=== PATIENT | female | born 1960 | race Caucasian/White ===

== ENCOUNTER 2016-11-29 06:07 | Inpatient (IN) | payer BC ==
[2016-11-14 09:45] VITALS: BMI 40.0
--- NOTE | 2016-11-14 10:11 | PAT Medication Instructions ---
Service Date Nov 14, 2016. Current Home Medication List Atorvastatin (Lipitor), 40 MG PO HS Cetirizine (Zyrtec), 10 MG PO HS Coconut Oil (Coconut Oil Organic), 2 CAP PO BID Fiber (Fiber Formula), 2 CAP PO TID Gabapentin (Neurontin), 600 MG PO TID Levothyroxine Sodium (Synthroid), 112 MCG PO QAM Lidocaine (Lidocaine), 1 PATCH TOP UD PRN for Pain Lorazepam (Lorazepam), 0.5 MG PO TID PRN for Anxiety Magnesium Oxide (Mg Supplement (Magnesium), 500 MG PO TID Multiple Vitamins W/ Minerals (Emergen-C [place]), 1,000 MG PO HS Nutritional Supplements (Menopause Formula), 1 TAB PO QAM Probiotic Product (Probiotic), 1 CAP PO HS Ranitidine HCl (Ranitidine [address]), 150 MG PO HS Sennosides-Docusate Sodium (Stool Softener), 1 TAB PO HS Sumatriptan Succinate (Sumatriptan Succinate), 1 TAB PO UD PRN for Migraine Venlafaxine Hcl (Effexor Xr), 1 CAP PO HS [Hemp Oil], 1,000 MG PO TID Medication Instructions For Your Scheduled Surgery - Hold the following medications 2 weeks prior to surgery: Coconut Oil (Coconut Oil Organic), 2 CAP PO BID [Hemp Oil], 1,000 MG PO TID Nutritional Supplements (Menopause Formula), 1 TAB PO QAM - Avoid using on surgical site 24 hours prior to surgery: Lidocaine (Lidocaine), 1 PATCH TOP UD PRN for Pain - Hold the following medications the morning of surgery: Fiber (Fiber Formula), 2 CAP PO TID Magnesium Oxide (Mg Supplement (Magnesium), 500 MG PO TID - Take the following medications the morning of surgery with a sip of water OTHERWISE NOTHING TO EAT OR DRINK AFTER MIDNIGHT: Sumatriptan Succinate (Sumatriptan Succinate), 1 TAB PO UD PRN for Migraine Gabapentin (Neurontin), 600 MG PO TID Levothyroxine Sodium (Synthroid), 112 MCG PO QAM Lorazepam (Lorazepam), 0.5 MG PO TID PRN for Anxiety - Take the following medications as scheduled the night before surgery: Venlafaxine Hcl (Effexor Xr), 1 CAP PO HS Probiotic Product (Probiotic), 1 CAP PO HS Ranitidine HCl (Ranitidine [address]), 150 MG PO HS Sennosides-Docusate Sodium (Stool Softener), 1 TAB PO HS Atorvastatin (Lipitor), 40 MG PO HS Cetirizine (Zyrtec), 10 MG PO HS Sumatriptan Succinate (Sumatriptan Succinate), 1 TAB PO UD PRN for Migraine Gabapentin (Neurontin), 600 MG PO TID Lorazepam (Lorazepam), 0.5 MG PO TID PRN for Anxiety Fiber (Fiber Formula), 2 CAP PO TID Magnesium Oxide (Mg Supplement (Magnesium), 500 MG PO TID Multiple Vitamins W/ Minerals (Emergen-C [place]), 1,000 MG PO HS If you have any questions please call us at [phone] or [phone] or [phone]
[2016-11-14 11:03] LABS: BASO % 1.8 %; COMPLETE YES; EOS % 3.3 %; HEMATOCRIT 44.5 % (37-47); IG% 0.2 %; LYMPH % 34.6 %; LYMPH ABS # 1.97 K/uL (1.2-3.4); MEAN CELL VOLUME 91.4 fL (80-100); MEAN CORPUSCULAR HEMOGLOBIN 30.2 pg (25-34); MEAN PLATELET VOLUME 8.9 fL (7.4-10.4); MONO % 5.3 %; NEUT % 54.8 %; PLATELET COUNT 294 K/uL (130-400); RED BLOOD COUNT 4.87 M/uL (4.2-5.4)
[2016-11-14 11:07] LABS: URINE APPEARANCE CLEAR (CLEAR); URINE BILIRUBIN NEG (NEG); URINE COLOR DK YELLOW; URINE EPITHELIAL CELL AUTO 20-30 /lpf (0-5); URINE NITRITE NEG (NEG); URINE SPECIFIC GRAVITY 1.017 (1.000-1.030); UROBILINOGEN NEG (NEG)
[2016-11-14 11:12] LABS: MANUAL MICROSCOPIC REQUIRED? NO; REVIEW REQ? NO
--- NOTE | 2016-11-14 11:12 | DIAGNOSTIC IMAGING REPORT ---
TWO VIEW CHEST CLINICAL HISTORY: Preoperative examination. FINDINGS: PA and lateral chest radiographs are compared to study dated 06/01/2015. The cardiomediastinal silhouette is unremarkable. Scattered tiny calcified granulomas are observed. The lungs and pleural spaces are otherwise clear. There is no pneumothorax. The skeletal structures are osteopenic. The bony thorax appears intact. Postoperative changes noted in the lower cervical spine. Fusion hardware is partially imaged in the upper lumbar spine. IMPRESSION: No active disease in the chest. Electronically signed by: Gael Arteaga M.D. 11/14/2016 11:10 AM Dictated Date/Time: 11/14/2016 11:09 AM
[2016-11-14 11:16] LABS: BUN/CREATININE RATIO 12.7 (10-20); CALCIUM 9.6 mg/dl (8.5-10.1); CREATININE 0.9 mg/dl (0.60-1.20); POTASSIUM 4.3 mmol/L (3.5-5.1)
[2016-11-14 11:22] LABS: PARTIAL THROMBOPLASTIN RATIO 1.1; PROTHROMBIN TIME (PATIENT) 10.8 SECONDS (9.0-12.0)
[2016-11-14 11:28] LABS: ESTIMATED AVERAGE GLUCOSE 126 mg/dl; HA1C FLAG Normal (Normal)
--- NOTE | 2016-11-28 10:27 | HISTORY & PHYSICAL EXAMINATION ---
DATE OF ADMISSION: 11/29/2016 CHIEF COMPLAINT: Bilateral knee pain. HISTORY OF PRESENT ILLNESS: The patient is a 56-year-old female with known bilateral knee osteoarthritis, right worse than left. She has had previous corticosteroid as well as viscosupplementation injections in the right knee. Due to ongoing pain and disability, she now desires to proceed with right total knee arthroplasty and left knee intraarticular injection. PAST MEDICAL HISTORY: Hypercholesterolemia, depression, hypothyroidism status post thyroidectomy, osteoarthritis, acid reflux, obesity. PAST SURGICAL HISTORY: Left ankle and right knee, thyroidectomy, lumbar spinal fusion, SI fusion, cervical fusion, cyst removal from the neck, ovarian surgery, appendectomy. MEDICATIONS: Include Synthroid 112 mcg daily, atorvastatin, calcium 40 mg daily, Effexor XR ER 1 daily, gabapentin 300 mg 1 in a.m., 2 in the p.m., pantoprazole sodium 440 mg once daily, sumatriptan succinate 100 mg at onset of migraine, Ativan 0.5 mg q. 6 hours p.r.n., fluticasone proprionate 2 sprays each nostril daily, probiotic formula once daily, coconut oil 1000 mg daily. ALLERGIES: No known drug allergies. SOCIAL HISTORY AND REVIEW OF SYSTEMS: Noncontributory. PHYSICAL EXAMINATION: GENERAL: Well-nourished, well-developed, obese female who appears her stated age. HEAD, EYES, EARS, NOSE, AND THROAT: Normocephalic, atraumatic, extraocular movements intact, oropharynx pink and moist. NECK: Supple without adenopathy. LUNGS: Clear to auscultation bilaterally. HEART: Regular rate and rhythm. ABDOMEN: Soft, nontender, nondistended, obese. EXTREMITIES: The upper extremities are within normal limits. The bilateral knees have a varus alignment. She complains primarily of medial compartment pain bilaterally. Her range of motion is approximately 0-120 degrees. X-RAYS: X-rays were reviewed. She has varus aligned knees. The right knee demonstrates [id number] arthritis of the medial compartment with complete loss of the joint space. There is medial osteophyte formation. There is moderate degenerative change about the patellofemoral joint. The left knee shows mild medial compartment narrowing with medial osteophyte formation. There are also mild degenerative changes about the patellofemoral joint. ASSESSMENT: Bilateral knee degenerative joint disease. PLAN: Risks versus benefits were discussed. Consent was obtained. The patient's primary care physician is Dr. Garland from [place]. Will proceed with right total knee arthroplasty and left knee injection upon preoperative workup and medical clearance.
[2016-11-29] VITALS (9 sets, daily range): BP systolic 102–131; BP diastolic 58–99; PULSE 66–95; TEMP 36.3–37.1; O2SAT 90–97; Ht 160 cm; Wt 100.9 kg
[~2016-11-29] VITALS: Ht 160 cm; Wt 100.9 kg
[~2016-11-29 06:07] MED LIST: ACETAMINOPHEN 500 MG TAB PO SCH; ATOR-24 PO; ATV5X PO; CEFAZOLIN 2000 MG/60 ML D5W 60 ML IV SCH; CETI10TA84 PO; COCO1CAP PO; CeleBREX 200 MG CAP PO SCH; DEXAMETHASONE 4 MG TAB PO SCH; FAMOTIDINE 20 MG TAB PO SCH; FIBE1CAP PO; GABA600T PO; GABAPENTIN 300 MG CAP PO SCH; HEMP OIL PO; IMT50 PO; LACTATED RINGER'S 1000ML 1,000 ML IV SCH; LACTATED RINGER'S 1000ML 500 ML IV ONE; LACTATED RINGER'S 1000ML IV SCH; LDDP5 TOP; LEVO112T2 PO; MAGN500C PO; METOCLOPRAMIDE HCL 10 MG TAB PO SCH; MISCCAP80 PO; MULT1PAK PO; NUTRTAB PO; RANI1TAB77 PO; ROPIVACAINE 5MG/ML 30 ML 150 MG, BUPIVACAINE/EPINEPHR 0.5% MPF 30 ML, KETOROLAC TROMETH... INFIL SCH; SENNTAB23 PO; VENL75CA PO
[2016-11-29] MEDS ORDERED: BUPIVACAINE 0.5 % 5 MG/1 ML PF 10ML VIAL ONE (06:28)
[2016-11-29] MEDS ORDERED: BUPIVACAINE 0.25% 30 ML VIAL ONE (06:29)
[2016-11-29] MEDS: TRANEXAMIC ACID INJ 1,000 MG in SODIUM CHLORIDE 0.9% 100ML 100 ML IV SCH ×2 (06:30→06:58)
--- NOTE | 2016-11-29 07:43 | History & Physical Bridge Note ---
H&P Re-Evaluation Bridge Note: I have examined the patient, reviewed the History & Physical and in the interval since the performance of the History & Physical I have noted the following changes of clinical significance: No changes noted
[2016-11-29] MEDS ORDERED: MIDAZOLAM HCL 1 MG/ML 2ML VIAL ONE (07:51)
[2016-11-29] MEDS ORDERED: POVIDONE-IODINE OP SOLN 30 ML BTL ONE (07:57)
[2016-11-29] MEDS ORDERED: ORTHO JOINT ANESTHETIC ONE (07:57)
[2016-11-29] MEDS ORDERED: BACITRACIN 50000 UNIT VIAL ONE (07:58)
[2016-11-29] MEDS ORDERED: FENTANYL CITRATE INJ 50 MCG/1 ML 2 ML VIAL ONE (08:13)
[2016-11-29] MEDS ORDERED: METHYLPREDNISOLONE ACETATE 80 MG/ML VIAL ONE (08:14)
[2016-11-29] MEDS ORDERED: BUPIVACAINE 0.5 % 5 MG/1 ML MPF 30ML VIAL ONE (08:14)
[2016-11-29] MEDS ORDERED: GLYCOPYRROLATE INJ 0.2 MG/ML VIAL ONE (09:00)
[2016-11-29] MEDS ORDERED: DEXAMETHASONE SOD INJ 4 MG/ML VIAL ONE (09:00)
[2016-11-29] MEDS ORDERED: NEOSTIGMINE METHYLSULFATE 5 MG/5 ML SYR ONE (09:00)
[2016-11-29] MEDS ORDERED: ROCURONIUM BROMIDE 10 MG/ML 5 ML VIAL ONE (09:00)
[2016-11-29] MEDS ORDERED: ONDANSETRON INJ 2 MG/ML 2 ML VIAL ONE (09:00)
[2016-11-29] MEDS ORDERED: PROPOFOL IV EMULSION 10 MG/ML 20 ML VIAL IV ONE (09:00)
[2016-11-29] MEDS ORDERED: LIDOCAINE HCL 2% 2 ML VIAL (20MG/ML) ONE (09:00)
[2016-11-29] MEDS ORDERED: LABETALOL HCL IV 5 MG/ML 20ML IV PRN (09:15)
[2016-11-29] MEDS ORDERED: PROMETHAZINE HCL INJ 12.5 MG in SODIUM CHLORIDE 0.9% 50ML 50 ML IV PRN (09:15)
[2016-11-29] MEDS ORDERED: ONDANSETRON INJ 2 MG/ML 2 ML VIAL IV PRN ×2 (09:15→10:15)
[2016-11-29] MEDS ORDERED: HYDROmorphone INJ 2 MG/ML SYR/VIAL IV PRN (09:15)
[2016-11-29] MEDS ORDERED: ATROPINE SULFATE 0.1 MG/ML 5ML SYR IV PRN (09:15)
[2016-11-29] MEDS ORDERED: KETOROLAC TROMETHAMINE 30 MG/ML VIAL IV. PRN (09:15)
--- NOTE | 2016-11-29 09:43 | [facility] Post Operative Brief Note ---
Immediate Operative Summary Operative Date November 29, 2016. Pre-Operative Diagnosis DEGENERATIVE JOINT DISEASE Post-Operative Diagnosis SAME PREOP Procedure(s) Performed LEFT KNEE INJECTION, RIGHT KNEE TOTAL ARTHROPLASTY Surgeon DR. Glo LIND Imaging Tech Surgeon(s) Rivas BURTON PAC Estimated Blood Loss 25ml Findings oa both Specimens RIGHT KNEE BONE AND TISSUE Disposition Recovery Room / PACU
[2016-11-29] MEDS ORDERED: HYDROmorphone INJ 1 MG/ML SYR ONE ×2 (10:10→10:32)
[2016-11-29] MEDS ORDERED: MAGNESIUM HYDROXIDE SUSP 30 ML UDC PO PRN (10:15)
[2016-11-29] MEDS ORDERED: ALUMINUM/MAGNESIUM/SIMETH (MAALOX MAX) 30 ML UDC PO PRN (10:15)
[2016-11-29] MEDS ORDERED: METOCLOPRAMIDE HCL INJ 5 MG/ML 2 ML VIAL IV PRN (10:15)
[2016-11-29] MEDS ORDERED: OXYCODONE HCL IR 5 MG TAB (IMMEDIATE RELEASE) PO PRN (10:15)
[2016-11-29] MEDS ORDERED: ZOLPIDEM TARTRATE 5 MG TAB PO PRN (10:15)
[2016-11-29] MEDS ORDERED: MoRPHine SULFATE 10 MG/ML CARP/VIAL IV PRN (10:15)
[2016-11-29] MEDS ORDERED: MoRPHine SULFATE 4 MG/ML 1 ML CARP\\VIAL IV PRN (10:15)
[2016-11-29] MEDS ORDERED: LORAZEPAM 0.5 MG TAB PO PRN (10:15)
[2016-11-29] MEDS ORDERED: MoRPHine SULFATE 2 MG/ML CARP IV PRN (10:15)
--- NOTE | 2016-11-29 10:39 | DIAGNOSTIC IMAGING REPORT ---
RIGHT KNEE 1 OR 2 VIEWS ROUTINE CLINICAL HISTORY: Postop examination COMPARISON: None. DISCUSSION: There are postsurgical changes of a total right knee arthroplasty and patellar resurfacing. Small lucencies in the proximal tibial metaphysis, are either postsurgical or related to overlying air bubbles. There are no acute fractures or dislocations. The femoral tibial components appear well seated. There is air in soft tissues consistent with recent surgery. There are overlying skin lalo and surgical drains. IMPRESSION: Postsurgical changes of a total right knee arthroplasty. Electronically signed by: Lucho Alarcon M.D. 11/29/2016 10:38 AM Dictated Date/Time: 11/29/2016 10:36 AM
--- NOTE | 2016-11-29 11:29 | Anesthesiology Progress Note ---
Anesthesia Post Op Note Date & Time November 29, 2016 at 11:29 Vital Signs Pain Intensity: 3 Vital Signs Past 12 Hours Date Time Temp Pulse Resp B/P Pulse Ox O2 Delivery O2 Flow Rate FiO2 11/29/16 10:46 36.5 11/29/16 10:45 111/67 11/29/16 10:43 67 14 11/29/16 10:43 66 14 95 11/29/16 10:40 110/67 11/29/16 10:38 68 12 93 11/29/16 10:38 67 12 11/29/16 10:35 125/71 11/29/16 10:33 66 12 94 11/29/16 10:33 66 12 11/29/16 10:30 115/68 11/29/16 10:28 67 15 92 11/29/16 10:28 67 15 11/29/16 10:25 108/73 11/29/16 10:23 60 14 97 11/29/16 10:23 60 14 11/29/16 10:20 116/77 11/29/16 10:20 95 Nasal Cannula 3 11/29/16 10:18 65 16 11/29/16 10:18 65 16 98 11/29/16 10:15 132/80 11/29/16 10:13 67 16 100 11/29/16 10:13 67 16 11/29/16 10:11 123/79 11/29/16 10:08 76 11/29/16 10:08 76 100 11/29/16 10:05 143/77 11/29/16 10:03 79 17 11/29/16 10:03 79 17 129/72 100 11/29/16 10:03 36.8 83 20 129/72 100 Mask 10 11/29/16 06:34 36.7 75 18 131/99 93 Room Air Notes Mental Status: alert / awake / arousable, participated in evaluation Pt Amnestic to Procedure: Yes Nausea / Vomiting: adequately controlled Pain: adequately controlled Airway Patency, RR, SpO2: stable & adequate BP & HR: stable & adequate Hydration State: stable & adequate Anesthetic Complications: no major complications apparent
[2016-11-29] MEDS: D5W AND 1/2NSS + 20MEQ KCL 1,000 ML IV SCH ×2 (12:06→22:02)
[2016-11-29] MEDS: KETOROLAC TROMETHAMINE 30 MG/ML VIAL IV. SCH ×3 (12:21→23:28)
[2016-11-29] MEDS: FERROUS GLUCONATE 324 MG TAB PO SCH ×2 (12:42→17:45)
[2016-11-29] MEDS: GABAPENTIN 600 MG TAB PO SCH ×2 (14:16→21:07)
[2016-11-29] MEDS: MAGNESIUM OXIDE 400 MG TAB PO SCH ×2 (14:17→21:08)
[2016-11-29] MEDS: ACETAMINOPHEN 500 MG TAB PO SCH ×2 (14:17→22:01)
[2016-11-29] MEDS: CEFAZOLIN IV 2,000 MG in DEXTROSE 5% 50ML 50 ML IV SCH ×2 (16:51→23:28)
[2016-11-29] MEDS ORDERED: VENLAFAXINE HCL XR 75 MG CAPXR PO SCH (21:00)
[2016-11-29] MEDS ORDERED: CETIRIZINE HCL 10 MG TAB PO SCH (21:00)
[2016-11-29] MEDS ORDERED: ATORVASTATIN 40 MG TAB PO SCH (21:00)
[2016-11-29] MEDS: OXYCODONE HCL 10 MG TABCR (OXYCONTIN) PO SCH (21:06)
[2016-11-29] MEDS: ASPIRIN 81 MG ECTAB PO SCH (21:06)
[2016-11-29] MEDS: DOCUSATE SODIUM 100 MG CAP PO SCH (21:07)
[2016-11-30 03:18] VITALS: BP 93/58; PULSE 62; TEMP 37; O2SAT 93
[2016-11-30] MEDS: ACETAMINOPHEN 500 MG TAB PO SCH ×2 (05:43→13:38)
[2016-11-30] MEDS: KETOROLAC TROMETHAMINE 30 MG/ML VIAL IV. SCH (05:43)
[2016-11-30] MEDS ORDERED: LEVOTHYROXINE 112 MCG TAB PO SCH (06:00)
[2016-11-30 06:39] LABS: HEMATOCRIT 35.5 % (37-47); MEAN CELL VOLUME 91.3 fL (80-100); MEAN CORPUSCULAR HEMOGLOBIN 30.1 pg (25-34); MEAN PLATELET VOLUME 8.8 fL (7.4-10.4); PLATELET COUNT 315 K/uL (130-400); RED BLOOD COUNT 3.89 M/uL (4.2-5.4); WHITE BLOOD COUNT 13.15 K/uL (4.8-10.8)
[2016-11-30 07:13] LABS: BUN/CREATININE RATIO 14.5 (10-20); CALCIUM 8.1 mg/dl (8.5-10.1); CREATININE 0.86 mg/dl (0.60-1.20); POTASSIUM 4.3 mmol/L (3.5-5.1)
[2016-11-30] MEDS ORDERED: DEXAMETHASONE INJ 10 MG in SYRINGE 0 ML IV ONE (07:30)
--- NOTE | 2016-11-30 07:39 | Orthopedic Progress Note ---
Orthopedic Progress Note Date of Service November 30, 2016. Subjective Post OP Day: 1 Reports: feeling well Objective N/V intact, dressing C/D/I (Hemovac d/c'd), toes mobile Date Time Temp Pulse Resp B/P Pulse Ox O2 Delivery O2 Flow Rate FiO2 11/30/16 07:18 Room Air 11/30/16 03:18 37.0 62 14 93/58 93 Room Air 11/29/16 23:15 Room Air 11/29/16 22:53 36.9 81 14 108/67 90 Room Air 11/29/16 19:37 37.1 95 17 102/64 90 Room Air 11/29/16 15:30 Nasal Cannula 2.0 11/29/16 15:00 36.6 88 17 107/67 91 Nasal Cannula 3.0 11/29/16 14:00 92 16 113/70 92 11/29/16 13:00 87 16 119/76 97 11/29/16 12:00 73 15 103/66 96 11/29/16 11:30 78 15 110/58 96 11/29/16 11:00 93 Nasal Cannula 3.0 11/29/16 11:00 93 Nasal Cannula 3.0 11/29/16 11:00 36.3 66 12 113/69 93 Nasal Cannula 3.0 11/29/16 10:46 36.5 11/29/16 10:45 111/67 11/29/16 10:43 67 14 11/29/16 10:43 66 14 95 11/29/16 10:40 110/67 11/29/16 10:38 68 12 93 11/29/16 10:38 67 12 11/29/16 10:35 125/71 11/29/16 10:33 66 12 94 11/29/16 10:33 66 12 11/29/16 10:30 115/68 11/29/16 10:28 67 15 92 11/29/16 10:28 67 15 11/29/16 10:25 108/73 11/29/16 10:23 60 14 97 11/29/16 10:23 60 14 11/29/16 10:20 116/77 11/29/16 10:20 95 Nasal Cannula 3 11/29/16 10:18 65 16 11/29/16 10:18 65 16 98 11/29/16 10:15 132/80 11/29/16 10:13 67 16 100 11/29/16 10:13 67 16 11/29/16 10:11 123/79 11/29/16 10:08 76 11/29/16 10:08 76 100 11/29/16 10:05 143/77 11/29/16 10:03 79 17 11/29/16 10:03 79 17 129/72 100 11/29/16 10:03 36.8 83 20 129/72 100 Mask 10 Laboratory Results 24 Hours: Test 11/30/16 05:35 Hematocrit 35.5 % Hemoglobin 11.7 g/dL Assessment & Plan Assessment: 56 yo female stable POD #1 s/p right TKA Plan: 1. Med management 2. DVT prophylaxis- ASA, TEDs, SCDs 3. PT/OT 4. D/C planning: home w/ HH
[2016-11-30 07:40] VITALS: BP 152/68; PULSE 85; TEMP 37; O2SAT 93
[2016-11-30] MEDS ORDERED: OXYSR10 PO (07:51)
[2016-11-30] MEDS ORDERED: CLB200 PO (07:51)
[2016-11-30] MEDS ORDERED: RXC5 PO (07:51)
[2016-11-30] MEDS ORDERED: ASPEC81 PO (07:51)
[2016-11-30] MEDS ORDERED: ACET-1138 PO (07:51)
--- NOTE | 2016-11-30 07:52 | Discharge Instructions ---
Discharge Instructions Date of Service November 30, 2016. Admission Reason for Admission: Right Knee Osteoarthritis, Left Knee Osteoarthriti Discharge Discharge Diagnosis / Problem: Right knee arthritis Discharge Goals Goal(s): Decrease discomfort, Improve function Activity Recommendations Activity Limitations: as noted below Weightbearing Status: Right weightbearing (as tolerated) . Instructions / Follow-Up Instructions / Follow-Up ACTIVITY RECOMMENDATIONS: SELF CARE INSTRUCTIONS AFTER TOTAL KNEE REPLACEMENT A. You may need to continue a physical therapy program after discharge from the hospital. There are several options available to you. Your doctor will assist you in selecting the best one for you. 1. An out-patient facility 2 to 3 times a week for therapy or home therapy. 2. Continue working on all exercises taught to you in the hospital. Your goals should be to increase bending of your knee to 90 degrees and beyond and to fully straighten your knee. B. You may progress at your own pace from walking with a walker or crutches to a cane; then to no assistive devices. C. Make walking a part of your daily routine. Be up as much as comfortable with rest periods throughout the day. Rest with leg elevation is very important. Use the ice wrap frequently for the first 3-4 weeks. D. There are no restrictions on activities. You may ride in a car, shop, participate in ticket counter and all social activities. E. Wear the long elastic stockings (ELPIDIO hose) 20 hours a day for 2 weeks after surgery. They can be removed several times a day for laundering and for a bath. F. You may shower, no tub baths until cleared by your doctor. SPECIAL CARE INSTRUCTIONS: VERY IMPORTANT TO READ AND REVIEW A. There are a few signs you need to watch for after you are home. Call [facility] if you notice any of the followin. Increased severe knee pain. Some pain is expected especially when you exercise. 2. Increased swelling in your leg or knee; pain or swelling of the calf muscle in either lower leg. 3. Any fluid drainage from the incision. 4. Shortness of breath or chest pain. B. Please call [facility] at if you have any concerns or questions about your operation or recovery. The doctor or his nurse will return your call promptly. C. You must take antibiotics before dental work, bladder, bowel or other surgery. Your doctor will provide you with a permanent care to carry describing this precaution. IMPORTANT: * REMEMBER TO TAKE ASPIRIN, 81 MG, TWICE DAILY FOR 4 WEEKS UNLESS OTHERWISE DIRECTED. THIS IS YOUR BLOOD THINNER. * HIGH RISK PATIENTS MAY BE PRESCRIBED A STRONGER BLOOD THINNER. THIS WILL BE PROVIDED AT DISCHARGE. * CALL IF INCREASED PAIN, REDNESS, DRAINAGE OR FEVER GREATER THAT 101. * WEAR ELPIDIO HOSE 20 HOURS PER DAY FOR 2 WEEKS. Silverlon- This is a large adhesive bandage that contains silver ions. This helps your incision heal by fighting off bacteria and protecting it from the outside environment. You are permitted to shower with this dressing. This will remain on your incision for 7 days and then should be removed. Some visible blood or drainage through the dressing window is normal. If there is significant drainage or leaking noted before the 7 days notify your doctor's office immediately. Once removed, keep incision clean and dry. If there is any drainage or redness noted, please call your surgeon. . FOLLOW UP VISIT: If appointment is not already scheduled: Please call [facility] to make a follow-up appointment for 2 weeks after your surgery at . Current Hospital Diet Patient's current hospital diet: Regular Diet Discharge Diet Recommended Diet: Regular Diet Procedures Procedures Performed: LEFT KNEE INJECTION, RIGHT KNEE TOTAL ARTHROPLASTY Pending Studies Studies pending at discharge: no Laboratory Results Hemoglobin A1c Test 11/14/16 10:19 Range/Units Estimated Average Glucose 126 mg/dl Hemoglobin A1c 6.0 H 4.5-5.6 % Medical Emergencies . Who to Call and When: Medical Emergencies: If at any time you feel your situation is an emergency, please call 911 immediately. . Non-Emergent Contact Non-Emergency issues call your: Surgeon Call Non-Emergent contact if: temperature is above 101.5, your pain is not controlled, wound has increased drainage, wound has increased redness . "Provider Documentation" section prepared by Clinton Faust PA-C. . VTE Core Measure Inpt VTE Proph given/why not?: Other Anticoagulation (ASA 81mg bid), T.E.D. Stockings, SCD's [place] Drug Monitoring Program Search Results: patient reviewed within database, no issues identified
--- NOTE | 2016-11-30 08:54 | Anesthesiology Progress Note ---
Anesthesia Post Op Note Date & Time November 30, 2016 at 08:53 Vital Signs Pain Intensity: 0.0 Vital Signs Past 12 Hours Date Time Temp Pulse Resp B/P Pulse Ox O2 Delivery O2 Flow Rate FiO2 11/30/16 07:40 37.0 85 16 152/68 93 Room Air 11/30/16 07:18 Room Air 11/30/16 03:18 37.0 62 14 93/58 93 Room Air 11/29/16 23:15 Room Air 11/29/16 22:53 36.9 81 14 108/67 90 Room Air Notes Mental Status: alert / awake / arousable, participated in evaluation Pt Amnestic to Procedure: Yes Nausea / Vomiting: adequately controlled Pain: adequately controlled Airway Patency, RR, SpO2: stable & adequate BP & HR: stable & adequate Hydration State: stable & adequate Anesthetic Complications: no major complications apparent
[2016-11-30] MEDS: FERROUS GLUCONATE 324 MG TAB PO SCH ×2 (08:55→12:30)
[2016-11-30] MEDS: DOCUSATE SODIUM 100 MG CAP PO SCH (08:55)
[2016-11-30] MEDS: ASPIRIN 81 MG ECTAB PO SCH (08:56)
[2016-11-30] MEDS: MAGNESIUM OXIDE 400 MG TAB PO SCH ×2 (08:56→13:37)
[2016-11-30] MEDS: GABAPENTIN 600 MG TAB PO SCH ×2 (08:56→13:37)
[2016-11-30] MEDS: OXYCODONE HCL 10 MG TABCR (OXYCONTIN) PO SCH (08:59)
[2016-11-30] MEDS ORDERED: PANTOprazole SOD 40 MG TAB PO SCH (09:00)
[2016-11-30] MEDS ORDERED: MULTIVITAMIN TAB PO SCH (09:00)
[2016-11-30 09:33] VITALS: BP 111/80; PULSE 75; O2SAT 94
[2016-11-30 11:44] VITALS: BP 121/78; PULSE 74; TEMP 37.1; O2SAT 94
[2016-11-30 13:12] VITALS: BP 121/78; PULSE 74; TEMP 37.1; O2SAT 94
[2016-11-30] MEDS ORDERED: CeleBREX 200 MG CAP PO SCH (21:00)
--- NOTE | 2016-12-05 11:39 | DISCHARGE SUMMARY ---
CHIEF COMPLAINT: Bilateral knee pain. Please see complete history and physical examination. HOSPITAL COURSE: The patient underwent right total knee arthroplasty and left knee intraarticular corticosteroid injection without complication. She tolerated the procedure well and was discharged to recovery room in stable condition. Her postoperative course was relatively uneventful. Her postoperative pain was reasonably well controlled with a combination of spinal anesthesia, adductor canal block, intraoperative joint injection, IV, and oral pain medications. She was started on aspirin for DVT prophylaxis. She also utilized ELPIDIO stockings and SCDs for additional prophylaxis. Her H\T\H was stable and did not require transfusion. Her surgical drain was discontinued on postoperative day 1; her surgical dressing will remain in place for approximately 7 days postoperative. She tolerated postoperative physical therapy reasonably well where she was bending her knee and ambulating appropriately. She was discharged home on postoperative day 1. She will continue her physical therapy at home. She will continue her aspirin for DVT prophylaxis and follow up in our office in approximately 10-14 days for initial postop evaluation.
--- NOTE | 2016-12-12 09:17 | OPERATIVE REPORT ---
DATE OF OPERATION: 11/29/2016 PREOPERATIVE DIAGNOSIS: Osteoarthritis right knee. POSTOPERATIVE DIAGNOSIS: Osteoarthritis right knee. PROCEDURE: Right total knee arthroplasty. SURGEON: Dr. Wilhelm. PHARMACIST MANAGER: Clinton Faust PA-C. ANESTHESIA: Spinal. COMPLICATIONS: None. OPERATION AND FINDINGS: Following induction of spinal anesthesia, the patient's right leg was prepped and draped in the usual sterile manner. Limb was exsanguinated with an Esmarch bandage and tourniquet was inflated to 350 mmHg. A longitudinal incision was made anteriorly. Subcutaneous tissue was sharply dissected. Electrocautery was used for hemostasis. Prepatellar bursa was incised and median parapatellar incision was performed. Patella was everted and the knee was flexed. Fat pad was removed to aid in visualization and the anterior and posterior cruciate ligaments were removed. The medial face of the tibia was cleared of soft tissue first with a Bovie and a Mccollum elevator. This tissue was retracted posteriorly using a blunt Hohmann. A Tyler retractor was used to expose the synovium above on the anterior aspect of the femur and this was removed down to bone. The PSI guide was placed on the distal femur and two pins were placed anteriorly and kept in position and two additional pins were placed distally and removed. The distal femoral cutting block was placed in position and the distal femoral cut was used in the +0 setting. Next, the cutting block was removed and the size 4 block was placed in the distal end of the femur. Care was taken to ensure appropriate external rotation and feeler gauge was used to ensure no notching would occur. The femoral block was centered on the distal femur and in the medial and lateral direction and was fixed using two bone screws. The gold pins were then removed. The oscillating saw was used to create the bone cuts and the distal femoral cutting block was removed and the reciprocating saw was used to further trim the femoral cuts as well as a deep in the area for the trochlear groove. Next, posterior condyle remnants were removed. Following this, a meniscal clamp and knife were utilized to remove the anterior portion of both medial and lateral meniscus. The proximal tibia PSI guide was placed into position and the proximal tibial cutting guide was screwed into position. The extra medullary alignment guide was utilized to ensure appropriate alignment. The proximal tibia was cut and the proximal tibial cutting block was removed and this bone fragment was removed. The appropriate guide was used to perform the notch cut on the distal femur and a lamina petal shaper hand and a cochlear knife were utilized to finish both medial and lateral meniscectomies to remove any remnants of the posterior or anterior cruciate ligaments. Following this, the distal femoral component was impacted into position and blunt Roe was used to sublux the tibia anteriorly. The proximal tibia was sized and a size 3 tibial tray was chosen as the size to be used. This was put into position and appropriate external rotation and a double check with extramedullary alignment guide was performed. The canal for the tibial stem was prepared first with a 17 mm drill and then the punch and a mallet and the trial tibial poly was placed. A size 11 poly was chosen the size to be used. It was brought to extension and the patella was prepared with the patellar reamer. A size 33 component was chosen the size to be used. The trial component was placed and knee was taken through a full range of motion and there was found to be no lateral subluxation of the tibia. No lateral release was required. The trials were all removed. The final components were obtained and assembled. Cement was mixed. The knee was thoroughly irrigated and the ortho mix was injected about the knee joint. The final components were cemented into position. After thoroughly suctioning and drying the bone ends, all excess cement was removed. The knee was held in extension while the cement hardened. The wound was irrigated and closed over a Hemovac drain. #1 Vicryl was used to close the extensor mechanism. Subcutaneous tissues closed using 0 Dexon. Skin was closed with lalo. Sterile dressing of Adaptic, 4 x 4's, sterile Webril, and Vidal was applied. The patient tolerated the procedure well. Recovery room stable. Due to the complex nature of the procedure, the entire surgery was performed with the operational assistance of Clinton Faust PA-C. The patient support assistant, under direct supervision, was involved in the actual performance of all aspects of the surgical procedure including hemostasis, tissue retraction and incision, instrument management, patient positioning, and wound closure. I attest to the content of the Intraoperative Record and any orders documented therein. Any exceptio ns are noted below.
== END 2016-11-30 14:14 | disposition home health service (06) | DRG 470 ==
LOC: ENRESERVTM → ENRESERVDT → C.ACU 06:07 → C.3E 06:32
PROC: 0SRC0J9 Replacement of Right Knee Joint with Synthetic Substitute, Cemented, Open Approach (ICD-10-PCS; principal; 2016-11-29 08:15)
DX: M17.0 Bilateral primary osteoarthritis of knee (principal); Z68.41 Body mass index [BMI] 40.0-44.9, adult; M21.162 Varus deformity, not elsewhere classified, left knee; M21.161 Varus deformity, not elsewhere classified, right knee; E78.00 Pure hypercholesterolemia, unspecified; E89.0 Postprocedural hypothyroidism; K21.9 Gastro-esophageal reflux disease without esophagitis; G43.909 Migraine, unspecified, not intractable, without status migrainosus; F41.9 Anxiety disorder, unspecified; F32.9 Major depressive disorder, single episode, unspecified; E66.01 Morbid (severe) obesity due to excess calories; Z98.1 Arthrodesis status; Z87.891 Personal history of nicotine dependence; Z79.899 Other long term (current) drug therapy

== ENCOUNTER 2016-12-13 08:51 | Inpatient (IN) | payer BC ==
--- NOTE | 2016-12-12 13:50 | HISTORY & PHYSICAL EXAMINATION ---
DATE OF ADMISSION: 12/13/2016 CHIEF COMPLAINT: Right knee pain and inability to extend the knee 2 weeks status post right total knee arthroplasty. HISTORY OF PRESENT ILLNESS: The patient is a 56-year-old female 2 weeks status post right total knee arthroplasty. She presented for her initial postop evaluation yesterday with complaints of new onset of pain and inability to extend her knee. She was reevaluated today and the decision was made to explore her knee and repair extensor mechanism as indicated. PAST MEDICAL HISTORY: Hypercholesterolemia, depression, hypothyroidism, status post thyroidectomy, osteoarthritis, acid reflux, obesity. PAST SURGICAL HISTORY: Right total knee as above, left ankle, thyroidectomy, lumbar spinal fusion, SI fusion, cervical fusion, cyst removal from the neck, ovarian surgery, appendectomy. MEDICATIONS: Synthroid 112 mcg daily, atorvastatin calcium 40 mg daily, Effexor XR ER once daily, gabapentin 300 mg 1 in the a.m., 2 in the p.m., pantoprazole sodium 440 mg daily, sumatriptan succinate 100 mg at onset of migraine, Ativan 0.5 mg q. 6 hours p.r.n., fluticasone proprionate 2 sprays each nostril daily, probiotic formula daily, coconut oil 1000 mg daily. She is currently taking aspirin 81 mg b.i.d. for DVT prophylaxis. ALLERGIES: No known drug allergies. SOCIAL HISTORY AND REVIEW OF SYSTEMS: Noncontributory. PHYSICAL EXAMINATION: GENERAL: Well-nourished, well-developed female who appears her stated age. HEAD, EYES, EARS, NOSE, AND THROAT: Normocephalic, atraumatic, extraocular movements intact, oropharynx pink and moist. NECK: Supple without adenopathy. LUNGS: Clear to auscultation bilaterally. HEART: Regular rate and rhythm. ABDOMEN: Soft, nontender, nondistended, obese. EXTREMITIES: The right knee incision is well healed. She has moderate effusion about the knee. She is unable to do a straight leg raise or extend the knee from a flexed position. X-RAYS: X-rays were reviewed and show a well fixed, well aligned knee without abnormality. ASSESSMENT: Possible extensor mechanism disruption, right total knee. PLAN: Risks versus benefits were discussed. Consent was obtained. Will proceed with a right total knee exploration, possible extensor mechanism repair as indicated.
[2016-12-13] VITALS (8 sets, daily range): BP systolic 104–157; BP diastolic 69–89; PULSE 83–107; TEMP 36.7–37; O2SAT 90–98; Ht 157.5 cm; Wt 100.0 kg
[~2016-12-13] VITALS: Ht 157.5 cm; Wt 100.0 kg
[2016-12-13] MEDS: TRANEXAMIC ACID INJ 1,000 MG in SODIUM CHLORIDE 0.9% 100ML 100 ML IV SCH ×2 (06:00→06:30)
[~2016-12-13 08:51] MED LIST changes: +ACET-1138 PO; +ASPEC81 PO; +BUPIVACAINE 0.5 % 5 MG/1 ML PF 10ML VIAL ONE; +CEFAZOLIN 1000MG/55 ML D5W IV SCH; +CLB200 PO; +OXYSR10 PO; +PATIENT'S HEIGHT AND/OR WEIGHT NEEDED SCH; +RXC5 PO
[2016-12-13] MEDS ORDERED: MIDAZOLAM HCL 1 MG/ML 2ML VIAL ONE (09:03)
[2016-12-13] MEDS ORDERED: FENTANYL CITRATE INJ 50 MCG/1 ML 2 ML VIAL ONE ×2 (09:04→11:53)
[2016-12-13] MEDS ORDERED: PROPOFOL IV EMULSION 10 MG/ML 20 ML VIAL IV ONE ×2 (09:07→10:15)
[2016-12-13] MEDS ORDERED: LIDOCAINE HCL 2% 2 ML VIAL (20MG/ML) ONE (09:07)
[2016-12-13] MEDS ORDERED: ASPI81TA28 PO (09:31)
[2016-12-13] MEDS ORDERED: CLB/200 PO (09:31)
[2016-12-13] MEDS ORDERED: GABA-113 PO (09:33)
[2016-12-13] MEDS ORDERED: OXYC1TAB3 PO (09:37)
[2016-12-13] MEDS ORDERED: OXYC15TA89 PO (09:37)
[2016-12-13] MEDS ORDERED: FLUT0.15 NAE (09:39)
[2016-12-13] MEDS ORDERED: ONDANSETRON INJ 2 MG/ML 2 ML VIAL ONE (10:01)
[2016-12-13] MEDS ORDERED: DEXAMETHASONE SOD INJ 4 MG/ML VIAL ONE (10:01)
[2016-12-13] MEDS ORDERED: EpHEDrine SULFATE INJ 50 MG/ML AMP IV PRN (10:30)
[2016-12-13] MEDS ORDERED: ATROPINE SULFATE 0.1 MG/ML 5ML SYR IV PRN (10:30)
[2016-12-13] MEDS ORDERED: ONDANSETRON INJ 2 MG/ML 2 ML VIAL IV PRN ×2 (10:30→12:45)
[2016-12-13] MEDS ORDERED: POVIDONE-IODINE OP SOLN 30 ML BTL ONE (11:13)
[2016-12-13] MEDS ORDERED: BUPIVACAINE/EPINEPHRINE 0.5% MPF 1:200,000 30 ML VIAL ONE (11:27)
[2016-12-13] MEDS ORDERED: CEFAZOLIN SOD 1 GM VIAL ONE (11:29)
--- NOTE | 2016-12-13 12:01 | [facility] Post Operative Brief Note ---
Immediate Operative Summary Operative Date December 13, 2016. Pre-Operative Diagnosis Possible Extensor Mechanism Disruption Right Total Knee Post-Operative Diagnosis Extensor Mechanism Disruption Right Total Knee and flexion contracture Procedure(s) Performed Poly exchange and extensor mechanism repair Surgeon Dr. Tani Wilhelm Controlled Atmospheric Furnace Brazer Surgeon(s) Chris Faust PA-C Estimated Blood Loss 10cc Findings Medial retinacular rupture and flexion contracture Specimens A: Explanted Hardware Disposition Recovery Room / PACU
[2016-12-13] MEDS ORDERED: BACITRACIN 50,000 UNITS IR ONE (12:18)
[2016-12-13] MEDS ORDERED: ZOLPIDEM TARTRATE 5 MG TAB PO PRN (12:45)
[2016-12-13] MEDS ORDERED: SUMATRIPTAN SUCCINATE 50 MG TAB PO PRN (12:45)
[2016-12-13] MEDS ORDERED: METOCLOPRAMIDE HCL INJ 5 MG/ML 2 ML VIAL IV PRN (12:45)
[2016-12-13] MEDS ORDERED: MAGNESIUM HYDROXIDE SUSP 30 ML UDC PO PRN (12:45)
[2016-12-13] MEDS ORDERED: MoRPHine SULFATE 2 MG/ML CARP IV PRN (12:45)
[2016-12-13] MEDS ORDERED: LORAZEPAM 0.5 MG TAB PO PRN (12:45)
[2016-12-13] MEDS ORDERED: ALUMINUM/MAGNESIUM/SIMETH (MAALOX MAX) 30 ML UDC PO PRN (12:45)
[2016-12-13] MEDS: FENTANYL CITRATE INJ 50 MCG/1 ML 2 ML VIAL IV PRN ×3 (12:50→13:40)
--- NOTE | 2016-12-13 13:04 | Anesthesiology Progress Note ---
Anesthesia Post Op Note Date & Time December 13, 2016 at 13:05 Vital Signs Pain Intensity: 3 Vital Signs Past 12 Hours Date Time Temp Pulse Resp B/P Pulse Ox O2 Delivery O2 Flow Rate FiO2 12/13/16 13:00 91 14 172/97 95 Nasal Cannula 3 12/13/16 12:50 88 14 173/95 95 Mask 10 12/13/16 12:40 85 18 168/100 98 Mask 10 12/13/16 12:32 37.1 85 18 173/91 98 Mask 10 12/13/16 09:10 36.7 96 20 157/88 96 Room Air Notes Mental Status: alert / awake / arousable, participated in evaluation Pt Amnestic to Procedure: Yes Nausea / Vomiting: adequately controlled Pain: adequately controlled Airway Patency, RR, SpO2: stable & adequate BP & HR: stable & adequate Hydration State: stable & adequate Anesthetic Complications: no major complications apparent
--- NOTE | 2016-12-13 13:14 | DIAGNOSTIC IMAGING REPORT ---
TWO VIEWS RIGHT KNEE CLINICAL HISTORY: Postoperative examination. FINDINGS: AP and crosstable lateral portable views of the right knee are obtained. A right knee arthroplasty is in near anatomic alignment. There has been undersurface remodeling of the patella. No acute fracture is seen. There are expected postoperative changes around the knee including skin clips, soft tissue edema, and subcutaneous gas. IMPRESSION: Expected postoperative changes status post right knee arthroplasty. No acute fracture is seen. Electronically signed by: Gael Arteaga M.D. 12/13/2016 1:13 PM Dictated Date/Time: 12/13/2016 1:12 PM
--- NOTE | 2016-12-13 13:44 | OPERATIVE REPORT ---
DATE OF OPERATION: 12/13/2016 PREOPERATIVE DIAGNOSIS: Extensor mechanism disruption. POSTOPERATIVE DIAGNOSIS: Extensor mechanism disruption and flexion contracture, right total knee. PROCEDURE: Exploration total knee with extensor mechanism repair and poly exchange. SURGEON: Dr. Wilhelm. HAND FORMER HELPER: Clinton Faust PA-C. ANESTHESIA: General. COMPLICATIONS: None. DESCRIPTION OF PROCEDURE: Following induction of adequate general anesthesia, the patient's right leg was prepped and draped in usual sterile manner. Limb was exsanguinated with an Esmarch bandage, tourniquet inflated to 350 mmHg. Longitudinal incision was reopened. Subcutaneous tissue was sharply dissected and a large amount of serous fluid was evacuated. There is significant flexion contracture noted and decision was made to continue the extensor mechanism disruption in order to gain access to the poly and exchange the poly from 11 mm to a 9 mm size. After thorough irrigation knee was flexed. An osteotome was used to dislodge the 11 mm poly. Irrigation was then used to clear clot from posterior in the knee and a 9 mm poly was impacted in position. This alleviated the patient's flexion contracture significantly. The knee was irrigated once again and after removal of all remaining Vicryl the extensor mechanism was closed using #2 mersilene suture. The subcutaneous tissue was closed using 0 Dexon, and skin was closed with lalo. A Prevena drain was utilized. The patient was awakened and taken to recovery in stable and good condition. She tolerated the procedure well. Mr. Faust was essential through all components of the procedure including positioning, prepping, draping, assistant research scientist, wound closure and dressing application. I attest to the content of the Intraoperative Record and any orders documented therein. Any exceptio ns are noted below.
[2016-12-13] MEDS ORDERED: MoRPHine SULFATE 4 MG/ML 1 ML CARP\\VIAL IV PRN (14:30)
[2016-12-13] MEDS ORDERED: MoRPHine SULFATE 10 MG/ML CARP/VIAL IV PRN (14:30)
[2016-12-13] MEDS: ACETAMINOPHEN 500 MG TAB PO SCH ×2 (15:49→22:22)
[2016-12-13] MEDS: KETOROLAC TROMETHAMINE 30 MG/ML VIAL IV. SCH ×2 (15:49→22:22)
[2016-12-13] MEDS: D5W AND 1/2NSS + 20MEQ KCL 1,000 ML IV SCH (15:50)
[2016-12-13] MEDS: FERROUS GLUCONATE 324 MG TAB PO SCH (18:11)
[2016-12-13] MEDS: CEFAZOLIN IV 2,000 MG in DEXTROSE 5% 50ML 50 ML IV SCH (20:47)
[2016-12-13] MEDS: DOCUSATE SODIUM 100 MG CAP PO SCH (20:47)
[2016-12-13] MEDS: GABAPENTIN 300 MG CAP PO SCH (20:48)
[2016-12-13] MEDS: ASPIRIN 81 MG ECTAB PO SCH (20:48)
[2016-12-13] MEDS ORDERED: VENLAFAXINE HCL XR 75 MG CAPXR PO SCH (21:00)
[2016-12-13] MEDS ORDERED: ATORVASTATIN 40 MG TAB PO SCH (21:00)
[2016-12-14] MEDS: D5W AND 1/2NSS + 20MEQ KCL 1,000 ML IV SCH (01:28)
[2016-12-14 03:50] VITALS: BP 124/75; PULSE 81; TEMP 36.4; O2SAT 95
[2016-12-14] MEDS: CEFAZOLIN IV 2,000 MG in DEXTROSE 5% 50ML 50 ML IV SCH (04:06)
[2016-12-14] MEDS: KETOROLAC TROMETHAMINE 30 MG/ML VIAL IV. SCH ×2 (04:06→09:20)
[2016-12-14] MEDS: ACETAMINOPHEN 500 MG TAB PO SCH (05:48)
[2016-12-14] MEDS: OXYCODONE HCL IR 5 MG TAB (IMMEDIATE RELEASE) PO PRN ×3 (05:51→13:51)
[2016-12-14 05:56] LABS: HEMATOCRIT 36.1 % (37-47); MEAN CELL VOLUME 91.9 fL (80-100); MEAN CORPUSCULAR HEMOGLOBIN 29.3 pg (25-34); MEAN CORPUSCULAR HGB CONC 31.9 g/dl (32-36); MEAN PLATELET VOLUME 8.3 fL (7.4-10.4); PLATELET COUNT 364 K/uL (130-400); RED BLOOD COUNT 3.93 M/uL (4.2-5.4); WHITE BLOOD COUNT 14.07 K/uL (4.8-10.8)
[2016-12-14] MEDS ORDERED: LEVOTHYROXINE 112 MCG TAB PO SCH (06:00)
[2016-12-14 06:18] LABS: BUN/CREATININE RATIO 17.3 (10-20); CALCIUM 8.3 mg/dl (8.5-10.1); CREATININE 0.93 mg/dl (0.60-1.20); POTASSIUM 4.3 mmol/L (3.5-5.1)
[2016-12-14 06:56] VITALS: BP 122/81; PULSE 80; TEMP 36.8; O2SAT 98
--- NOTE | 2016-12-14 07:28 | Orthopedic Progress Note ---
Orthopedic Progress Note Date of Service December 14, 2016. Subjective Post OP Day: 1 Reports: feeling well Objective N/V intact, dressing C/D/I, toes mobile Date Time Temp Pulse Resp B/P Pulse Ox O2 Delivery O2 Flow Rate FiO2 12/14/16 06:56 36.8 80 16 122/81 98 Room Air 12/14/16 03:50 36.4 81 16 124/75 95 Room Air 12/13/16 23:28 36.8 83 16 112/69 90 Room Air 12/13/16 23:25 Room Air 12/13/16 19:40 37.0 98 20 104/75 96 Room Air 12/13/16 17:00 36.9 95 18 130/82 97 Room Air 12/13/16 16:00 36.9 102 18 132/76 92 Room Air 12/13/16 15:30 Room Air 12/13/16 15:24 Nasal Cannula 12/13/16 15:21 37.0 93 16 147/89 Nasal Cannula 3.0 12/13/16 15:17 Nasal Cannula 3.0 12/13/16 15:00 37.0 107 20 150/89 97 Nasal Cannula 2.0 12/13/16 14:30 36.8 90 14 148/87 98 Nasal Cannula 3.0 12/13/16 13:45 91 18 138/86 95 Nasal Cannula 3 12/13/16 13:30 94 18 142/89 95 Nasal Cannula 3 12/13/16 13:20 90 18 150/87 97 Nasal Cannula 3 12/13/16 13:10 36.3 93 18 157/88 98 Nasal Cannula 3 12/13/16 13:00 91 14 172/97 95 Nasal Cannula 3 12/13/16 12:50 88 14 173/95 95 Mask 10 12/13/16 12:40 85 18 168/100 98 Mask 10 12/13/16 12:32 37.1 85 18 173/91 98 Mask 10 12/13/16 09:10 36.7 96 20 157/88 96 Room Air Laboratory Results 24 Hours: Test 12/14/16 05:27 Hematocrit 36.1 % Hemoglobin 11.5 g/dL Assessment & Plan Assessment: 56 yo female stable POD #1 s/p right TKA medial retinacular repair and poly change Plan: 1. DVT prophylaxis- ASA 2. PT/OT 3. D/C planning- home today
[2016-12-14] MEDS ORDERED: DEXAMETHASONE INJ 10 MG in SYRINGE 0 ML IV SCH (07:30)
[2016-12-14] MEDS ORDERED: ACET-1138 PO (07:31)
[2016-12-14] MEDS ORDERED: ASPEC81 PO (07:31)
[2016-12-14] MEDS ORDERED: CLB200 PO (07:31)
--- NOTE | 2016-12-14 07:33 | Discharge Instructions ---
Discharge Instructions Date of Service December 14, 2016. Admission Reason for Admission: Right Knee Osteoarthritis, Tendon/Muscle Strain Discharge Discharge Diagnosis / Problem: Right TKA medial retinaculum rupture Discharge Goals Goal(s): Decrease discomfort, Improve function Activity Recommendations Activity Limitations: as noted below Weightbearing Status: Right weightbearing (as tolerated) . Instructions / Follow-Up Instructions / Follow-Up ACTIVITY RECOMMENDATIONS: SELF CARE INSTRUCTIONS AFTER TOTAL KNEE REPLACEMENT A. You may need to continue a physical therapy program after discharge from the hospital. There are several options available to you. Your doctor will assist you in selecting the best one for you. 1. An out-patient facility 2 to 3 times a week for therapy or home therapy. 2. Continue working on all exercises taught to you in the hospital. Your goals should be to increase bending of your knee to 90 degrees and beyond and to fully straighten your knee. B. You may progress at your own pace from walking with a walker or crutches to a cane; then to no assistive devices. C. Make walking a part of your daily routine. Be up as much as comfortable with rest periods throughout the day. Rest with leg elevation is very important. Use the ice wrap frequently for the first 3-4 weeks. D. There are no restrictions on activities. You may ride in a car, shop, participate in office secretary and all social activities. E. Wear the long elastic stockings (ELPIDIO hose) 20 hours a day for 2 weeks after surgery. They can be removed several times a day for laundering and for a bath. F. You may shower, no tub baths until cleared by your doctor. SPECIAL CARE INSTRUCTIONS: VERY IMPORTANT TO READ AND REVIEW A. There are a few signs you need to watch for after you are home. Call [facility] if you notice any of the followin. Increased severe knee pain. Some pain is expected especially when you exercise. 2. Increased swelling in your leg or knee; pain or swelling of the calf muscle in either lower leg. 3. Any fluid drainage from the incision. 4. Shortness of breath or chest pain. B. Please call [facility] at if you have any concerns or questions about your operation or recovery. The doctor or his nurse will return your call promptly. C. You must take antibiotics before dental work, bladder, bowel or other surgery. Your doctor will provide you with a permanent care to carry describing this precaution. IMPORTANT: * REMEMBER TO TAKE ASPIRIN, 81 MG, TWICE DAILY FOR 4 WEEKS UNLESS OTHERWISE DIRECTED. THIS IS YOUR BLOOD THINNER. * HIGH RISK PATIENTS MAY BE PRESCRIBED A STRONGER BLOOD THINNER. THIS WILL BE PROVIDED AT DISCHARGE. * CALL IF INCREASED PAIN, REDNESS, DRAINAGE OR FEVER GREATER THAT 101. * WEAR ELPIDIO HOSE 20 HOURS PER DAY FOR 2 WEEKS. Silverlon- This is a large adhesive bandage that contains silver ions. This helps your incision heal by fighting off bacteria and protecting it from the outside environment. You are permitted to shower with this dressing. This will remain on your incision for 7 days and then should be removed. Some visible blood or drainage through the dressing window is normal. If there is significant drainage or leaking noted before the 7 days notify your doctor's office immediately. Once removed, keep incision clean and dry. If there is any drainage or redness noted, please call your surgeon. FOLLOW UP VISIT: If appointment is not already scheduled: Please call [facility] to make a follow-up appointment for 2 weeks after your surgery at . Current Hospital Diet Patient's current hospital diet: Regular Diet Discharge Diet Recommended Diet: Regular Diet Procedures Procedures Performed: Poly Exchange and Extensor Mechanism Repair Pending Studies Studies pending at discharge: no Laboratory Results Hemoglobin A1c Test 11/14/16 10:19 Range/Units Estimated Average Glucose 126 mg/dl Hemoglobin A1c 6.0 H 4.5-5.6 % Medical Emergencies . Who to Call and When: Medical Emergencies: If at any time you feel your situation is an emergency, please call 911 immediately. . Non-Emergent Contact Non-Emergency issues call your: Surgeon Call Non-Emergent contact if: temperature is above 101.5, your pain is not controlled, wound has increased drainage, wound has increased redness . "Provider Documentation" section prepared by Clinton Faust PA-C. . VTE Core Measure Inpt VTE Proph given/why not?: Other Anticoagulation (ASA 81mg bid), T.E.D. Stockings, SCD's [place] Drug Monitoring Program Search Results: patient reviewed within database, no issues identified
--- NOTE | 2016-12-14 07:38 | Anesthesiology Progress Note ---
Anesthesia Post Op Note Date & Time December 14, 2016 at 07:38 Vital Signs Pain Intensity: 3.0 Vital Signs Past 12 Hours Date Time Temp Pulse Resp B/P Pulse Ox O2 Delivery O2 Flow Rate FiO2 12/14/16 06:56 36.8 80 16 122/81 98 Room Air 12/14/16 03:50 36.4 81 16 124/75 95 Room Air 12/13/16 23:28 36.8 83 16 112/69 90 Room Air 12/13/16 23:25 Room Air 12/13/16 19:40 37.0 98 20 104/75 96 Room Air Notes Mental Status: alert / awake / arousable, participated in evaluation Pt Amnestic to Procedure: Yes Nausea / Vomiting: adequately controlled Pain: adequately controlled Airway Patency, RR, SpO2: stable & adequate BP & HR: stable & adequate Hydration State: stable & adequate Anesthetic Complications: no major complications apparent
[2016-12-14] MEDS ORDERED: MULTIVITAMIN TAB PO SCH (09:00)
[2016-12-14] MEDS ORDERED: PANTOprazole SOD 40 MG TAB PO SCH (09:00)
[2016-12-14] MEDS: FERROUS GLUCONATE 324 MG TAB PO SCH ×2 (09:21→13:52)
[2016-12-14] MEDS: DOCUSATE SODIUM 100 MG CAP PO SCH (09:21)
[2016-12-14] MEDS: ASPIRIN 81 MG ECTAB PO SCH (09:21)
[2016-12-14] MEDS: GABAPENTIN 300 MG CAP PO SCH ×2 (09:21→13:51)
[2016-12-14 11:15] VITALS: BP 122/81; PULSE 80; TEMP 36.8; O2SAT 98
[2016-12-14] MEDS ORDERED: CeleBREX 200 MG CAP PO SCH (21:00)
--- NOTE | 2016-12-19 17:02 | DISCHARGE SUMMARY ---
CHIEF COMPLAINT: Right total knee extensor mechanism disruption. Please see complete history and physical examination. HOSPITAL COURSE: The patient underwent right total knee poly exchange and extensor mechanism repair without complication. She tolerated the procedure well and was discharged to recovery room in stable condition. Her postop course was relatively uneventful. Her postoperative pain was reasonably well controlled with a combination of spinal anesthesia, adductor canal block, IV, and oral pain medications. She was started on aspirin for DVT prophylaxis. She also utilized ELPIDIO stockings and SCDs for additional prophylaxis. Her H and H was stable and did not require transfusion. Her surgical dressing will remain in place for approximately 7 days postoperative. She tolerated postoperative physical therapy reasonably well, she was bending her knee and ambulating appropriately. She was discharged home on postoperative day 1. She will continue her physical therapy at home. She will continue her aspirin for DVT prophylaxis and follow up in our office in approximately 10-14 days for initial postop evaluation.
== END 2016-12-14 14:02 | disposition home health service (06) | DRG 468 ==
LOC: ENRESERVTM → ENRESERVDT → C.ACU 08:51 → C.3E 13:59
PROC: 0SPC09Z Removal of Liner from Right Knee Joint, Open Approach (ICD-10-PCS; principal; 2016-12-13 11:30)
PROC: 0SRC0JZ Replacement of Right Knee Joint with Synthetic Substitute, Open Approach (ICD-10-PCS; principal; 2016-12-13 11:30)
DX: T84.099A Other mechanical complication of unspecified internal joint prosthesis, initial encounter (principal); Z96.651 Presence of right artificial knee joint; E78.00 Pure hypercholesterolemia, unspecified; F32.9 Major depressive disorder, single episode, unspecified; E89.0 Postprocedural hypothyroidism; M19.90 Unspecified osteoarthritis, unspecified site; E66.9 Obesity, unspecified; Z79.82 Long term (current) use of aspirin; Y83.1 Surgical operation with implant of artificial internal device as the cause of abnormal reaction of the patient, or of later complication, without mention of misadventure at the time of the procedure

== ENCOUNTER → 2017-12-02 | Outpatient (CLI) | payer BC ==
[~2017-12-02] MED LIST changes: -ACETAMINOPHEN 500 MG TAB PO SCH; -ASPEC81 PO; +ASPI-320 PO; -BUPIVACAINE 0.5 % 5 MG/1 ML PF 10ML VIAL ONE; -CEFAZOLIN 1000MG/55 ML D5W IV SCH; -CEFAZOLIN 2000 MG/60 ML D5W 60 ML IV SCH; -CeleBREX 200 MG CAP PO SCH; -DEXAMETHASONE 4 MG TAB PO SCH; -FAMOTIDINE 20 MG TAB PO SCH; +FLUT0.15 NAE; +GABA-113 PO; -GABA600T PO; -GABAPENTIN 300 MG CAP PO SCH; -LACTATED RINGER'S 1000ML 1,000 ML IV SCH; -LACTATED RINGER'S 1000ML 500 ML IV ONE; -LACTATED RINGER'S 1000ML IV SCH; -METOCLOPRAMIDE HCL 10 MG TAB PO SCH; +OXYC15TA89 PO; +OXYC1TAB3 PO; -OXYSR10 PO; -PATIENT'S HEIGHT AND/OR WEIGHT NEEDED SCH; -ROPIVACAINE 5MG/ML 30 ML 150 MG, BUPIVACAINE/EPINEPHR 0.5% MPF 30 ML, KETOROLAC TROMETH... INFIL SCH; -RXC5 PO
--- NOTE | 2017-12-02 13:05 | DIAGNOSTIC IMAGING REPORT ---
BONE SCAN 3 PHASE LIMITED CLINICAL HISTORY: 57 years-old Female presenting with ASEPTIC LOOSENING HX OF R TKA. TECHNIQUE: Following the IV administration of 26.3 mCi of technetium 99m MDP, three-phase bone scan of the knees was performed. Anterior flow images as well as anterior and posterior blood pool phase images were acquired. Bone phase imaging of knees was performed at three hours in multiple obliquities. COMPARISON: Plain radiographs of the right knee from 12/28/2016. FINDINGS: On initial flow imaging, hyperemia surrounding the right knee. Normal distribution of radiotracer within the vasculature. On subsequent blood pool phase imaging, persistent hyperemia surrounding the right knee prosthesis. On bone phase imaging, partially visualized urinary bladder demonstrates expected excretion of radiotracer. Asymmetric hyperemia surrounding the right knee prosthesis. This also involves the patellar component. Normal appearance of the left knee. IMPRESSION: Three-phase positive bone scan. Osteomyelitis/septic arthritis is not excluded. This could also represent loosening. A sulfur colloid scan may help differentiate these entities though this is not available at this institution. Electronically signed by: Anjel Mock M.D. 12/02/2017 1:03 PM Dictated Date/Time: 12/02/2017 12:59 PM
== END | disposition home or self-care (01) ==
LOC: C.NUCL 08:23
DX: T84.032A Mechanical loosening of internal right knee prosthetic joint, initial encounter (principal); X58.XXXA Exposure to other specified factors, initial encounter

== ENCOUNTER → 2017-12-06 | Outpatient (CLI) | payer BC | END | disposition home or self-care (01) | LOC: C.LAB 13:56 | DX: Z96.651 Presence of right artificial knee joint (principal) ==

== ENCOUNTER → 2018-02-19 | Outpatient (CLI) | payer BC ==
[~2018-02-19] MED LIST changes: -ACET-1138 PO; -ASPI-320 PO; +ASPI81TA28 PO; +DAPT500I IV; -HEMP OIL PO; -LDDP5 TOP; -MAGN500C PO; -NUTRTAB PO; -OXYC15TA89 PO; -OXYC1TAB3 PO; -VENL75CA PO; +VENL75CA94 PO
== END | disposition home or self-care (01) ==
LOC: C.LAB 15:15
PROVIDERS: ATTEND Physician Assistant Medical
DX: T84.54XD Infection and inflammatory reaction due to internal left knee prosthesis, subsequent encounter (principal); Y83.1 Surgical operation with implant of artificial internal device as the cause of abnormal reaction of the patient, or of later complication, without mention of misadventure at the time of the procedure

== ENCOUNTER 2018-03-13 07:32 | Inpatient (IN) | payer BC ==
[2018-02-04 08:11] VITALS: BMI 34.0
--- NOTE | 2018-03-12 12:42 | HISTORY & PHYSICAL EXAMINATION ---
DATE OF ADMISSION: 03/13/2018 CHIEF COMPLAINT: Septic right total knee. HISTORY OF PRESENT ILLNESS: Patient is a 57-year-old female, approximately 15 months status post right total knee arthroplasty. Shortly after her initial surgery, she had a fall and an injury and a right total knee extensor mechanism repair. More recently, approximately 8 weeks ago, she underwent an excisional arthroplasty and placement of antibiotic spacer for a septic total knee. She had a PICC line in place and approximately 6 weeks of IV antibiotics. Her subsequent aspiration was negative for ongoing infection, and she is now scheduled for removal of antibiotic spacer and revision of total knee arthroplasty. PAST MEDICAL HISTORY: Hypercholesterolemia, depression, hypothyroidism, osteoarthritis, obesity, acid reflux. PAST SURGICAL HISTORY: Right knee as above. MEDICATIONS: Synthroid daily, magnesium oxide 500 mg 3 times daily, atorvastatin 40 mg daily, ranitidine 150 mg daily, probiotic daily, Zyrtec 10 mg daily, multivitamin daily, lorazepam 0.5 mg 2 times daily, gabapentin 300 mg 3 times daily, oxycodone p.r.n. pain. ALLERGIES: No known drug allergies. SOCIAL HISTORY: Noncontributory. REVIEW OF SYSTEMS: Noncontributory. PHYSICAL EXAMINATION: GENERAL: Well-nourished and well-developed female who appears her stated age. HEENT: Normocephalic, atraumatic. Extraocular movements intact. Oropharynx pink and moist. NECK: Supple, without adenopathy. LUNGS: Clear to auscultation bilaterally. HEART: Regular rate and rhythm. ABDOMEN: Soft, nontender, nondistended, obese. EXTREMITIES: The right knee incision is well healed. Range of motion from 0-90 degrees. IMAGING: X-rays were reviewed. She has an antibiotic spacer in place. ASSESSMENT: Septic right total knee, resolved with antibiotic spacer and intravenous antibiotics. PLAN: Risks versus benefits were discussed. Consent was obtained. We will proceed with removal of antibiotic spacer and revision of total knee as indicated.
[2018-03-13] VITALS (8 sets, daily range): BP systolic 111–131; BP diastolic 67–97; PULSE 73–110; TEMP 36.3–36.9; O2SAT 93–97; Ht 160 cm; Wt 86.4 kg
[~2018-03-13] VITALS: Ht 160 cm; Wt 86.4 kg
[2018-03-13] MEDS: TRANEXAMIC ACID INJ 1,000 MG x 2 Bags IV SCH ×4 (06:00→06:30)
[~2018-03-13 07:32] MED LIST changes: +ACETAMINOPHEN 500 MG TAB PO SCH; +BUPIVACAINE 0.25% 30 ML VIAL ONE; +BUPIVACAINE 0.5 % 5 MG/1 ML PF 10ML VIAL ONE; +CEFAZOLIN 2000MG IV PUSH 15 ML IV SCH; +CeleBREX 200 MG CAP PO SCH; +DEXAMETHASONE 4 MG TAB PO SCH; +FAMOTIDINE 20 MG TAB PO SCH; +GABAPENTIN 600 MG PO SCH; +LACTATED RINGER'S 1000ML 1,000 ML IV SCH; +LACTATED RINGER'S 1000ML 500 ML IV SCH; +METOCLOPRAMIDE HCL 10 MG TAB PO SCH; +ROPIVACAINE 5MG/ML 30 ML 150 MG, BUPIVACAINE 0.5% MPF INJ 30 ML, EpINEphrine HCL INJ 0.... INFIL SCH; +VENL75CA88 PO; -VENL75CA94 PO
[2018-03-13] MEDS ORDERED: MIDAZOLAM HCL 1 MG/ML 2ML VIAL ONE (08:59)
[2018-03-13] MEDS ORDERED: LIDOCAINE HCL 2% 2 ML VIAL (20MG/ML) ONE (08:59)
[2018-03-13] MEDS ORDERED: PROPOFOL IV EMULSION 10 MG/ML 20 ML VIAL ONE ×2 (08:59→12:32)
[2018-03-13 09:07] LABS: HEMATOCRIT 41.2 % (37-47); HEMOGLOBIN 13.8 g/dL (12.0-16.0); MEAN CELL VOLUME 83.9 fL (80-100); MEAN CORPUSCULAR HEMOGLOBIN 28.1 pg (25-34); MEAN PLATELET VOLUME 8.7 fL (7.4-10.4); PLATELET COUNT 264 K/uL (130-400); RED CELL DISTRIBUTION WIDTH CV 15.4 % (11.5-14.5); RED CELL DISTRIBUTION WIDTH SD 47.4 fL (36.4-46.3); WHITE BLOOD COUNT 4.69 K/uL (4.8-10.8)
--- NOTE | 2018-03-13 09:19 | History & Physical Bridge Note ---
H&P Re-Evaluation Bridge Note: I have examined the patient, reviewed the History & Physical and in the interval since the performance of the History & Physical I have noted the following changes of clinical significance: No changes notedPatients fall did not damage the knee. With djd Left that we will inject as well.
[2018-03-13 09:23] LABS: MEAN CORPUSCULAR HGB CONC 33.5 g/dl (32-36)
[2018-03-13] MEDS ORDERED: POVIDONE-IODINE OP SOLN 30 ML BTL ONE (09:57)
[2018-03-13] MEDS ORDERED: ORTHO JOINT ANESTHETIC ONE (09:57)
[2018-03-13] MEDS ORDERED: BACITRACIN 50000 UNIT VIAL ONE (09:57)
[2018-03-13] MEDS ORDERED: BUPIVACAINE/EPINEPHRINE 0.5% MPF 1:200,000 30 ML VIAL ONE (09:58)
[2018-03-13] MEDS ORDERED: METHYLPREDNISOLONE ACETATE 80 MG/ML VIAL ONE (09:58)
[2018-03-13] MEDS ORDERED: FENTANYL CITRATE INJ 50 MCG/1 ML 2 ML VIAL ONE ×4 (10:17→13:14)
[2018-03-13] MEDS ORDERED: ROCURONIUM BROMIDE 10 MG/ML 5 ML VIAL ONE (11:12)
[2018-03-13] MEDS ORDERED: ONDANSETRON INJ 2 MG/ML 2 ML VIAL ONE (11:12)
[2018-03-13] MEDS ORDERED: EpHEDrine SULFATE 50MG/5ML SYR ONE (11:12)
[2018-03-13] MEDS ORDERED: DEXAMETHASONE SOD INJ 4 MG/ML VIAL ONE (11:12)
[2018-03-13] MEDS ORDERED: HYDROmorphone INJ 2 MG/ML SYR/VIAL ONE (11:26)
[2018-03-13] MEDS ORDERED: LABETALOL HCL IV 5 MG/ML 20ML IV PRN (11:30)
[2018-03-13] MEDS ORDERED: ONDANSETRON INJ 2 MG/ML 2 ML VIAL IV PRN ×2 (11:30→14:00)
[2018-03-13] MEDS ORDERED: KETOROLAC TROMETHAMINE 30 MG/ML VIAL IV. PRN (11:30)
[2018-03-13] MEDS ORDERED: ATROPINE SULFATE 0.1 MG/ML 5ML SYR IV PRN (11:30)
[2018-03-13] MEDS ORDERED: HYDROmorphone INJ 2 MG/ML SYR/VIAL IV PRN (11:30)
--- NOTE | 2018-03-13 13:07 | [facility] Post Operative Brief Note ---
Immediate Operative Summary Operative Date Mar 13, 2018. Pre-Operative Diagnosis Septic right knee- resolved with antibiotic spacer Post-Operative Diagnosis Septic right knee- resolved with antibiotic spacer Procedure(s) Performed Right Total Knee Arthroplasty Revision with Removal Antibiotic Spacer, Left Knee Cortisone Injection Surgeon Dr Wilhelm Compressed Yeast Supervisor Surgeon(s) Una SARMIENTO Estimated Blood Loss 50 ML Findings Consistent with Post-Op Diagnosis Specimens Right Knee Fluid - Stat gram stain / Routine cultures, and anaerobic culture sent at 1132 Bone interface prostatic/femur right knee Frozen section #1 for number of WBC'S per high powered field Bone Interface right tibia frozen section #2 for number of WBC'S per high powered field PERMANENT: A. explanted hardware Anesthesia Type MAC Spinal Regional Disposition Accompanied Pt To Recover: no Disposition: Recovery Room / PACU Overlapping Procedure I was present for: the critical portions of procedure. I was immediately available: during the entire case
[2018-03-13] MEDS ORDERED: ETOMIDATE 2 MG/ML 20 ML VIAL IV ONE (13:14)
[2018-03-13] MEDS ORDERED: KETAMINE HCL INJ 50 MG/ML 10 ML VIAL ONE (13:16)
[2018-03-13] MEDS ORDERED: NEOSTIGMINE METHYLSULFATE 5 MG/5 ML SYR ONE (13:17)
[2018-03-13] MEDS ORDERED: GLYCOPYRROLATE INJ 0.2 MG/ML VIAL ONE (13:17)
[2018-03-13] MEDS ORDERED: FLUTICASONE PROPIONATE NA SPR 16 GM BTL NAE PRN (14:00)
[2018-03-13] MEDS ORDERED: MoRPHine SULFATE 2 MG/ML CARP IV PRN (14:00)
[2018-03-13] MEDS ORDERED: MAGNESIUM HYDROXIDE SUSP 30 ML UDC PO PRN (14:00)
[2018-03-13] MEDS ORDERED: ALUMINUM/MAGNESIUM/SIMETH (MAALOX MAX) 30 ML UDC PO PRN (14:00)
[2018-03-13] MEDS ORDERED: BISACODYL 10 MG SUPP PR PRN (14:00)
[2018-03-13] MEDS ORDERED: SUMATRIPTAN SUCCINATE 50 MG TAB PO PRN (14:00)
[2018-03-13] MEDS ORDERED: LORAZEPAM 0.5 MG TAB PO PRN (14:00)
[2018-03-13] MEDS ORDERED: OXYCODONE HCL IR 5 MG TAB (IMMEDIATE RELEASE) PO PRN (14:00)
[2018-03-13] MEDS ORDERED: VANCOMYCIN CONSULT ACTIVE PRN (14:00)
--- NOTE | 2018-03-13 14:23 | DIAGNOSTIC IMAGING REPORT ---
R KNEE 1 OR 2 VIEWS ROUTINE CLINICAL HISTORY: Postoperative evaluation. COMPARISON: Right knee radiographs January 02, 2018. FINDINGS: Alignment of the constrained revision total right knee arthroplasty is anatomic. There is no periprosthetic fracture or unexpected radiopaque foreign body. There are skin lalo. IMPRESSION: Expected findings following right knee arthroplasty. Electronically signed by: Ezekiel Cruz M.D. 03/13/2018 2:21 PM Dictated Date/Time: 03/13/2018 2:16 PM
--- NOTE | 2018-03-13 15:18 | Anesthesiology Progress Note ---
Anesthesia Post Op Note Date & Time Mar 13, 2018 at 15:18 Vital Signs Pain Intensity: 0 Vital Signs Past 12 Hours Date Time Temp Pulse Resp B/P (MAP) Pulse Ox O2 Delivery O2 Flow Rate FiO2 03/13/18 14:49 36.9 92 15 131/76 (94) 93 Nasal Cannula 2.0 03/13/18 14:41 133/71 03/13/18 14:38 98 12 91 03/13/18 14:38 97 12 03/13/18 14:36 137/72 03/13/18 14:33 86 9 03/13/18 14:33 79 9 95 03/13/18 14:31 128/76 03/13/18 14:28 105 16 03/13/18 14:28 105 16 94 03/13/18 14:26 137/88 03/13/18 14:25 36.6 97 16 128/76 (93) 96 Nasal Cannula 2 03/13/18 14:23 111 18 93 03/13/18 14:23 111 18 03/13/18 14:22 99 16 92 03/13/18 14:22 104 16 03/13/18 14:21 138/92 03/13/18 14:17 106 16 98 03/13/18 14:17 106 16 03/13/18 14:16 141/88 03/13/18 14:12 92 16 03/13/18 14:12 94 16 100 03/13/18 14:11 138/78 03/13/18 14:11 138/78 03/13/18 14:08 103 13 97 03/13/18 14:08 102 13 03/13/18 14:08 102 13 03/13/18 14:08 103 13 97 03/13/18 14:06 139/92 03/13/18 14:06 139/92 03/13/18 14:03 98 10 03/13/18 14:03 97 10 87 03/13/18 14:03 98 10 03/13/18 14:03 97 10 87 03/13/18 14:01 117/86 03/13/18 14:01 117/86 03/13/18 13:58 106 8 142/70 95 03/13/18 13:58 106 8 03/13/18 13:58 106 8 142/70 95 03/13/18 13:58 106 8 03/13/18 13:56 149/76 03/13/18 13:56 149/76 03/13/18 13:54 130/98 03/13/18 13:54 130/98 03/13/18 13:53 108 98 03/13/18 13:53 36.7 104 12 149/76 (119) 96 Oxymask 10 03/13/18 13:53 108 03/13/18 13:53 108 98 03/13/18 13:53 108 03/13/18 08:35 36.8 73 20 122/73 93 Room Air Notes Mental Status: alert / awake / arousable, participated in evaluation Pt Amnestic to Procedure: Yes Nausea / Vomiting: adequately controlled Pain: adequately controlled Airway Patency, RR, SpO2: stable & adequate BP & HR: stable & adequate Hydration State: stable & adequate Anesthetic Complications: no major complications apparent
[2018-03-13 16:35] LABS: ALBUMIN 3.4 gm/dl (3.4-5.0); CREATININE 0.92 mg/dl (0.60-1.20); TOTAL PROTEIN 7.3 gm/dl (6.4-8.2)
[2018-03-13] MEDS: ACETAMINOPHEN 500 MG TAB PO SCH ×2 (16:52→23:53)
[2018-03-13] MEDS: D5W AND 1/2NSS + 20MEQ KCL 1,000 ML IV SCH (16:53)
[2018-03-13] MEDS: FERROUS GLUCONATE 324 MG TAB PO SCH (17:48)
[2018-03-13] MEDS: KETOROLAC TROMETHAMINE 30 MG/ML VIAL IV. SCH ×2 (17:53→23:53)
[2018-03-13] MEDS: GABAPENTIN 300 MG CAP PO SCH (20:24)
[2018-03-13] MEDS: DOCUSATE SODIUM 100 MG CAP PO SCH (20:25)
[2018-03-13] MEDS ORDERED: ATORVASTATIN 40 MG TAB PO SCH (21:00)
[2018-03-13] MEDS ORDERED: RANITIDINE HCL 150 MG TAB PO SCH (21:00)
[2018-03-13] MEDS ORDERED: CETIRIZINE HCL 10 MG TAB PO SCH (21:00)
[2018-03-13] MEDS ORDERED: SENNA 8.6 MG TAB PO SCH (21:00)
[2018-03-13] MEDS ORDERED: VENLAFAXINE HCL XR 75 MG CAPXR PO SCH (21:00)
[2018-03-14] MEDS ORDERED: VANCOMYCIN IV 1,250 MG in SODIUM CHLORIDE 0.9% 250ML 250 ML IV ONE (02:00)
[2018-03-14] MEDS: D5W AND 1/2NSS + 20MEQ KCL 1,000 ML IV SCH ×2 (02:03→11:50)
[2018-03-14 03:30] VITALS: BP_SYST 106; BP_SYST 113; BP_DIAS 57; BP_DIAS 66; PULSE 67; TEMP 36.8; O2SAT 98
[2018-03-14] MEDS: KETOROLAC TROMETHAMINE 30 MG/ML VIAL IV. SCH ×2 (05:45→11:51)
[2018-03-14 06:00] VITALS: O2SAT 95
[2018-03-14] MEDS ORDERED: LEVOTHYROXINE 112 MCG TAB PO SCH (06:00)
[2018-03-14 06:10] LABS: HEMATOCRIT 35.3 % (37-47); HEMOGLOBIN 11.5 g/dL (12.0-16.0); MEAN CELL VOLUME 84.9 fL (80-100); MEAN CORPUSCULAR HEMOGLOBIN 27.6 pg (25-34); MEAN CORPUSCULAR HGB CONC 32.6 g/dl (32-36); MEAN PLATELET VOLUME 8.5 fL (7.4-10.4); PLATELET COUNT 238 K/uL (130-400); RED CELL DISTRIBUTION WIDTH CV 15.4 % (11.5-14.5); RED CELL DISTRIBUTION WIDTH SD 48.2 fL (36.4-46.3); WHITE BLOOD COUNT 12.61 K/uL (4.8-10.8)
[2018-03-14 06:40] LABS: CALCIUM 8.4 mg/dl (8.5-10.1); CREATININE 0.8 mg/dl (0.60-1.20); POTASSIUM 4.4 mmol/L (3.5-5.1)
--- NOTE | 2018-03-14 07:04 | OPERATIVE REPORT ---
DATE OF OPERATION: 03/13/2018 PREOPERATIVE DIAGNOSIS: Status post insertion of antibiotic cement articulated spacer, right knee. POSTOPERATIVE DIAGNOSIS: Status post insertion of antibiotic cement articulated spacer, right knee. PROCEDURE: Revision articulated cement spacer to total knee. SURGEON: Dr. Wilhelm. RN BEHAVIORAL HEALTH: SHRADDHA Marquez ANESTHESIA: Spinal. COMPLICATIONS: None. DESCRIPTION OF PROCEDURE: Following induction of adequate anesthesia, the patient's right knee was prepped and draped in usual sterile manner. Limb was exsanguinated with an Esmarch bandage, tourniquet inflated to 200 mmHg. Previously made incision was reopened. Subcutaneous tissue was sharply dissected. Electrocautery used for hemostasis. A median parapatellar incision was made and some bloody fluid was noted. No purulence. A scar excision was carried out throughout the knee and the medial face of the tibia was cleared of soft tissue using a Bovie and then a Mccollum. First, attention was turned to the patellar component which was easily levered off with a small osteotome. Following this, a lateral snip was performed and attention was turned to the tibial component. It was able to be easily dislodged from the knee using a punch and a mallet, and attention was then turned to the distal femur. After just a couple of taps, femur was found to be loose as well. There was no bone loss with removal of the tibial or femoral components. First, attention was turned to the tibia canal where sequential reamings were carried up to size 10. I was able to release some 275 mm. Cleanup cut was made using an oscillating saw. The guide for the tibial spines was placed and pinned into position. Check revealed perpendicular placement of the tibial cut to the long axis of the tibia. The punch was used to prepare the spines and the cannulated drill was used to further prepare the proximal tibia. Next, attention was turned to the femur where a size 4 femur was chosen the size to be used. A 5 mm distal cleanup cut as well as posterior 5 mm cut were used. The notch was cut with the appropriate guide and the trial femur was impacted into position. A size 11 tibial poly gave good reproduction of soft tissue tension. Next oscillating saw was used to prepare the patella and drill was used to reopen 3 patellar pegs for a size 33 patella. Trial components and trials were removed. Joint injection was performed periarticularly, 2 soft tissue samples, 1 from the bone cement interface femur and 1 from the bone cement interface of the tibia that had been sent toward the beginning of the case, both showed evidence of 1-2 white blood cells. Gram stain was showing just a few white cells, no organisms seen. So the decision was made to proceed with the final revision components. Pulsatile irrigant was used to thoroughly irrigate the wound. Cement was mixed after the components were also assembled. Bone ends were dried and once there was assurance of no soft tissue in the bone cemented interface, final components were cemented into position. First the femur was cemented in position. Excess cement was removed. Following this, the tibia was cemented into position and getting rid of excess cement. Tibial poly was impacted in position and the retaining pin was placed. The knee was held in extension with a bump under the heel while the cement hardened and the patella was cemented into position. Following hardening of the cement, final irrigation was carried out and a Betadine soak was carried out. The lateral snip was closed using #2 FiberWire suture, extensor mechanism was closed using #1 Vicryl, subcutaneous tissue was closed using 0 Dexon and 2-0 Dexon. The skin was closed with lalo. Sterile dressing of Adaptic, 4x4s, sterile Webril and double length Vidal was applied. The patient was taken to recovery room in stable and good condition. Prior to closure, a Hemovac drain had been placed. I attest to the content of the Intraoperative Record and any orders documented therein. Any exception s are noted below.
[2018-03-14 07:45] VITALS: BP 135/71; PULSE 77; TEMP 37; O2SAT 93
[2018-03-14] MEDS: FERROUS GLUCONATE 324 MG TAB PO SCH ×2 (08:39→12:30)
[2018-03-14] MEDS: GABAPENTIN 300 MG CAP PO SCH ×2 (08:39→14:10)
[2018-03-14] MEDS: ACETAMINOPHEN 500 MG TAB PO SCH ×2 (08:39→16:49)
[2018-03-14] MEDS: DOCUSATE SODIUM 100 MG CAP PO SCH (08:39)
[2018-03-14] MEDS ORDERED: RIVAROXABAN 10 MG TAB PO SCH (09:00)
[2018-03-14] MEDS ORDERED: MULTIVITAMIN TAB PO SCH (09:00)
--- NOTE | 2018-03-14 09:59 | Orthopedic Progress Note ---
Orthopedic Progress Note Date of Service Mar 14, 2018. Subjective Post OP Day: 1 Reports: feeling well, Denies: complaints Additional Notes: "Can I go home today?" Doing well. Sitting up in chair. Good ROM. No complaints Objective calves soft nontender, N/V intact, dressing C/D/I, A&O x3, toes mobile Date Time Temp Pulse Resp B/P (MAP) Pulse Ox O2 Delivery O2 Flow Rate FiO2 03/14/18 08:48 Room Air 03/14/18 07:45 37.0 77 16 135/71 (92) 93 Room Air 03/14/18 06:00 95 Room Air 03/14/18 03:30 36.8 67 16 106/66 (79) 98 Nasal Cannula 1.0 03/13/18 23:50 Nasal Cannula 2.0 03/13/18 23:20 36.9 101 16 111/67 (82) 94 Nasal Cannula 2.0 03/13/18 20:31 36.9 110 17 114/69 (84) 93 Room Air 03/13/18 16:50 36.5 99 17 130/73 (92) 93 Nasal Cannula 1.0 03/13/18 15:54 36.3 94 16 124/97 (106) 97 Nasal Cannula 2.0 03/13/18 15:39 Nasal Cannula 2.0 03/13/18 15:26 36.5 95 16 128/77 (94) 95 Nasal Cannula 2.0 03/13/18 14:50 95 Nasal Cannula 2.0 03/13/18 14:50 95 Nasal Cannula 2.0 03/13/18 14:49 36.9 92 15 131/76 (94) 93 Nasal Cannula 2.0 03/13/18 14:41 133/71 03/13/18 14:38 98 12 91 03/13/18 14:38 97 12 03/13/18 14:36 137/72 03/13/18 14:33 86 9 03/13/18 14:33 79 9 95 03/13/18 14:31 128/76 03/13/18 14:28 105 16 03/13/18 14:28 105 16 94 03/13/18 14:26 137/88 03/13/18 14:25 36.6 97 16 128/76 (93) 96 Nasal Cannula 2 03/13/18 14:23 111 18 93 03/13/18 14:23 111 18 03/13/18 14:22 99 16 92 03/13/18 14:22 104 16 03/13/18 14:21 138/92 03/13/18 14:17 106 16 98 03/13/18 14:17 106 16 03/13/18 14:16 141/88 03/13/18 14:12 92 16 03/13/18 14:12 94 16 100 03/13/18 14:11 138/78 03/13/18 14:11 138/78 03/13/18 14:08 103 13 97 03/13/18 14:08 102 13 03/13/18 14:08 102 13 03/13/18 14:08 103 13 97 03/13/18 14:06 139/92 03/13/18 14:06 139/92 03/13/18 14:03 98 10 03/13/18 14:03 97 10 87 03/13/18 14:03 98 10 03/13/18 14:03 97 10 87 03/13/18 14:01 117/86 03/13/18 14:01 117/86 03/13/18 13:58 106 8 142/70 95 03/13/18 13:58 106 8 03/13/18 13:58 106 8 142/70 95 03/13/18 13:58 106 8 03/13/18 13:56 149/76 03/13/18 13:56 149/76 03/13/18 13:54 130/98 03/13/18 13:54 130/98 03/13/18 13:53 108 98 03/13/18 13:53 36.7 104 12 149/76 (119) 96 Oxymask 10 03/13/18 13:53 108 03/13/18 13:53 108 98 03/13/18 13:53 108 Laboratory Results 24 Hours: Test 03/14/18 05:57 Hematocrit 35.3 % Hemoglobin 11.5 g/dL Assessment & Plan Assessment: POD 1 s/p Right TKA Revision s/p septic TKA Plan: PT/OT Plan for home with services Inhouse Planning Pain Management: Celebrex, Toradol, Morphine, PO Tylenol, Oxy IR DVT Prophylaxis: TEDs, SCDs, Xarelto Discharge Planning Discharge Planning: home with home health
--- NOTE | 2018-03-14 10:06 | Discharge Instructions ---
Discharge Instructions Date of Service Mar 14, 2018. Admission Reason for Admission: Right Knee Infection & Inflammatory Reaction D/T I Discharge Discharge Diagnosis / Problem: S/P Right knee infection Discharge Goals Goal(s): Decrease discomfort, Improve function, Increase independence Activity Recommendations Activity Limitations: per Instructions/Follow-up section Weightbearing Status: Right weightbearing (as tolerated) . Instructions / Follow-Up Instructions / Follow-Up ACTIVITY RECOMMENDATIONS: SELF CARE INSTRUCTIONS AFTER TOTAL KNEE REPLACEMENT A. You may need to continue a physical therapy program after discharge from the hospital. There are several options available to you. Your doctor will assist you in selecting the best one for you. 1. An out-patient facility 2 to 3 times a week for therapy or home therapy. 2. Continue working on all exercises taught to you in the hospital. Your goals should be to increase bending of your knee to 90 degrees and beyond and to fully straighten your knee. B. You may progress at your own pace from walking with a walker or crutches to a cane; then to no assistive devices. C. Make walking a part of your daily routine. Be up as much as comfortable with rest periods throughout the day. Rest with leg elevation is very important. Use the ice wrap frequently for the first 3-4 weeks. D. There are no restrictions on activities. You may ride in a car, shop, participate in laborer pole crew and all social activities. E. Wear the long elastic stockings (ELPIDIO hose) 20 hours a day for 2 weeks after surgery. They can be removed several times a day for laundering and for a bath. F. You may shower, no tub baths until cleared by your doctor. SPECIAL CARE INSTRUCTIONS: VERY IMPORTANT TO READ AND REVIEW A. There are a few signs you need to watch for after you are home. Call [facility] if you notice any of the followin. Increased severe knee pain. Some pain is expected especially when you exercise. 2. Increased swelling in your leg or knee; pain or swelling of the calf muscle in either lower leg. 3. Any fluid drainage from the incision. 4. Shortness of breath or chest pain. B. Please call [facility] at if you have any concerns or questions about your operation or recovery. The doctor or his nurse will return your call promptly. C. You must take antibiotics before dental work, bladder, bowel or other surgery. Your doctor will provide you with a permanent care to carry describing this precaution. IMPORTANT: * REMEMBER TO TAKE XARELTO ONCE DAILY FOR 2 WEEKS UNLESS OTHERWISE DIRECTED. THIS IS YOUR BLOOD THINNER. * HIGH RISK PATIENTS MAY BE PRESCRIBED A STRONGER BLOOD THINNER. THIS WILL BE PROVIDED AT DISCHARGE. * CALL IF INCREASED PAIN, REDNESS, DRAINAGE OR FEVER GREATER THAT 101. * WEAR ELPIDIO HOSE 20 HOURS PER DAY FOR 2 WEEKS. * Prevena- This is a large suction dressing covering your incision. This will help pull any excess drainage from the wound and allow your incision to heal properly. You may shower with this if you can keep the unit outside of the shower. If any bleeding or leakage is noted please call your doctor's office. This will remain on your incision for 7 days and then should be removed. This can be done yourself or by the home nursing staff if applicable. The entire unit is disposable once removed. Once removed, keep incision clean and dry. If redness or drainage is noted, please call your surgeon. . FOLLOW UP VISIT: If appointment is not already scheduled: Please call [facility] to make a follow-up appointment for 2 weeks after your surgery at . Follow up with Dr Ospina in 10-14 days. Call for an appt. [phone] Current Hospital Diet Patient's current hospital diet: Regular Diet Discharge Diet Recommended Diet: Regular Diet Procedures Procedures Performed: Right Total Knee Arthroplasty Revision with Removal Antibiotic Spacer, Left Knee Cortisone Injection Pending Studies Studies pending at discharge: no Laboratory Results Hemoglobin A1c Test 12/17/17 09:34 Range/Units Estimated Average Glucose 143 mg/dl Hemoglobin A1c 6.6 H 4.5-5.6 % Medical Emergencies . Who to Call and When: Medical Emergencies: If at any time you feel your situation is an emergency, please call 911 immediately. . Non-Emergent Contact Non-Emergency issues call your: Surgeon Call Non-Emergent contact if: temperature is above 101.5, your pain is not controlled, your pain is worsening, wound has increased drainage, wound has increased redness . "Provider Documentation" section prepared by Chris Rivera. . [place] Drug Monitoring Program Search Results: patient reviewed within database, no issues identified
--- NOTE | 2018-03-14 10:50 | Progress Note ---
Progress Note Date of Service Mar 14, 2018. Progress Note ID Consult Dicated #[id number] A/P: 1. Prosthetic joint infection s/p revision surgery -No signs of ongoing infection after completion of abx -Will place on course of suppressive doxy based on previous cultures and will follow post d/c -No contraindication to d/c when otherwise stable -Thank you
[2018-03-14 11:02] VITALS: BP 120/76; PULSE 81; TEMP 37.3; O2SAT 92
[2018-03-14] MEDS ORDERED: XRL10 PO (11:13)
[2018-03-14] MEDS ORDERED: ACET-24 PO (11:13)
[2018-03-14] MEDS ORDERED: CLB200 PO (11:13)
[2018-03-14] MEDS ORDERED: RXC5 PO ×2 (11:13→13:56)
[2018-03-14] MEDS ORDERED: DOXYCYCLINE HYCLATE 100 MG CAP PO SCH (12:00)
--- NOTE | 2018-03-14 12:18 | INFECT. DISEASE CONSULTATION ---
DATE OF CONSULTATION: 03/14/2018 HISTORY OF PRESENT ILLNESS: This is a 57-year-old female who was admitted to the hospital electively for revision surgery of her right knee. In December, she had a right knee prosthetic joint infection. Her cultures grew coagulase-negative staph. She was discharged on a 6-week course of intravenous daptomycin, which she completed successfully. She then was followed off of antibiotics for 2 weeks and had aspiration of her joint as an outpatient. She states the cultures of this were negative and elective knee replacement was scheduled. She had this done yesterday successfully. No purulence was found intraoperatively. She did undergo intraoperative culture. Her culture is no growth to date. There were a few white blood cells and no organisms on Gram stain. Her previous culture again had rare WBCs, no organisms and was negative. She currently received a 1 time dose of vancomycin intraoperatively, but is off of antibiotics. She has had a mild elevation in her white blood cell count postoperatively from 4-12,000. She has been afebrile since admission. She denies any pain in the knee. She states she is anxious to be discharged to home. She denies any fevers or chills. She has no abdominal pain, nausea, vomiting, diarrhea, chest pain, cough or shortness of breath. REVIEW OF SYSTEMS: Her remaining review of systems is reviewed and is unremarkable. PAST MEDICAL HISTORY: Significant for high cholesterol, depression, hypothyroidism, osteoarthritis, obesity, GERD and recent right knee infection. PAST SURGICAL HISTORY: Significant for right knee replacement, spacer placement and again revision surgery yesterday. ALLERGIES: She has no known drug allergies. FAMILY HISTORY: Noncontributory. SOCIAL HISTORY: Negative for tobacco use, alcohol use or drug use. CURRENT MEDICATIONS: Multivitamins, Xarelto, Synthroid, Lipitor, Zyrtec, Neurontin, Zantac, Effexor, Senokot, Colace, Toradol, iron, Tylenol, Ativan, Imitrex, morphine, Roxicodone, milk of magnesia, Dulcolax, Maalox, Zofran. PHYSICAL EXAMINATION: VITAL SIGNS: She is afebrile, pulse 77, respiratory rate 16, blood pressure 135/71, oxygen saturation is 93% on room air. GENERAL: She is awake, alert and oriented x3. She is in no acute distress. HEENT: Mucous membranes are moist. Extraocular muscles are intact. HEART: Regular. LUNGS: Clear bilaterally. ABDOMEN: Soft, nontender, nondistended. EXTREMITIES: There is no lower extremity edema. Right leg dressing is clean, dry and intact. Drain is in place with serosanguineous fluid. LABORATORY STUDIES: CBC today, white blood cell count 12.6, hemoglobin 11.5, platelets 238. Chemistry panel: Sodium 139, potassium 4.4, chloride 107, bicarbonate 25, BUN 12, creatinine 0.8, glucose 137. Culture is negative to date. 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 At this time, it does not seem that there is any recurrent infection; however, I do not disagree with a course of suppressive antibiotics. I will place the patient on doxycycline 100 mg twice daily by mouth. We will plan to follow in the office post discharge hopefully within a few months. She can be transitioned off of antibiotics altogether. Thank you for this consultation.
[2018-03-14] MEDS ORDERED: DXY100 PO (13:41)
[2018-03-14 15:53] VITALS: BP 136/77; PULSE 75; TEMP 37.1; O2SAT 95
[2018-03-14 17:02] VITALS: BP 136/77; PULSE 75; TEMP 37.1; O2SAT 95
[2018-03-14] MEDS ORDERED: CeleBREX 200 MG CAP PO SCH (21:00)
--- NOTE | 2018-03-18 09:42 | DISCHARGE SUMMARY ---
DISCHARGE DIAGNOSIS: Status post infection of right knee with implantation of antibiotic spacer. SECONDARY DIAGNOSES: Hypercholesterolemia, depression, hypothyroidism, osteoarthritis, obesity, gastroesophageal reflux disease. CONSULTS: Dr. Ospina. COMPLICATIONS: None. PROCEDURES: Removal of antibiotic spacer, right knee with implantation of revision TKA, and also left knee cortisone injection by Dr. Wilhelm on 03/13/2018. BRIEF HISTORY: As dictated in the history and physical. HOSPITAL SUMMARY: The patient was admitted on the above date and had the above-noted surgery performed, which she tolerated well. On her first postoperative day, she had no complaints and was hoping to go home. She was doing well, sitting up in chair. She has good range of motion and was stable. Calves were soft and nontender. Neurovascularly intact. Dressings clean, dry, and intact. Toes were mobile. Vital signs were stable and she was afebrile. Hemoglobin was 11.5 and she was started on physical therapy protocol and continued on DVT prophylaxis and pain management. Dr. Ospina would be consulted for recommendations postoperatively for antibiotics. She recommended a course of doxycycline in the interim while cultures were pending and otherwise to continue her normal postoperative recovery. The patient was progressing well with her physical therapy and was seen by Dr. Wilhelm later in the afternoon and it was felt that she could be discharged to home and she was thusly discharged to home on 03/14/2018. For further review, please see chart. LABORATORY AND X-RAY DATA: As per chart. DISCHARGE INSTRUCTIONS: The patient was discharged to home in satisfactory condition on 03/14/2018. Diet: Regular. Activity: Weightbearing as tolerated right lower extremity. Follow TKA instruction sheets and special care instructions as noted. Follow up with Dr. Wilhelm in 2 weeks. The patient to call for appointment if one has not been made for you. Follow up with Dr. Ospina in 10-14 days. The patient to call for appointment. DISCHARGE MEDICATIONS: Acetaminophen 1000 mg p.o. q. 8 hours for 14 days, doxycycline 100 mg p.o. b.i.d. for 14 days, oxycodone 5 mg p.o. q. 4 hours p.r.n., rivaroxaban 10 mg p.o. q. 24 hours for 14 days. Resume home meds as listed.
== END 2018-03-14 17:30 | disposition home health service (06) | DRG 468 ==
LOC: C.ACU 07:32 → C.3E 14:06 → ENRESERV 14:28
PROC: 3E0U33Z Introduction of Anti-inflammatory into Joints, Percutaneous Approach (ICD-10-PCS; principal; 2018-03-13 10:45)
PROC: 0SPC08Z Removal of Spacer from Right Knee Joint, Open Approach (ICD-10-PCS; principal; 2018-03-13 10:45)
PROC: 0SRC0J9 Replacement of Right Knee Joint with Synthetic Substitute, Cemented, Open Approach (ICD-10-PCS; principal; 2018-03-13 10:45)
DX: Z47.1 Aftercare following joint replacement surgery (principal); E78.5 Hyperlipidemia, unspecified; F32.9 Major depressive disorder, single episode, unspecified; E03.9 Hypothyroidism, unspecified; E66.9 Obesity, unspecified; K21.9 Gastro-esophageal reflux disease without esophagitis; Z96.651 Presence of right artificial knee joint